=== PATIENT | female | born 1945 | race Asian ===

== ENCOUNTER 2016-10-08 18:17 | Inpatient (IN) | payer MEDICARE ==
[~2016-10-08] VITALS: Ht 180.3 cm; Wt 73.3 kg
--- NOTE | ~2016-10-08 | HEMODYNAMI ---
PATIENT:MOON HOWARD MEDICAL RECORD: [id number] : 41 LOCATION[id number] ADMISSION DATE: 10/08/16 Generatedon:10/09/201613:33 Patient name: MOON HOWARD Patient #: [id number] SSN: : 1945 Date of study: 10/09/2016 Page: Of Hemodynamic Procedure Report Patient Data Patient Demographics Procedure consent was obtained First Name: MOON Gender: Female Last Name: ANITA : 1945 Middle Initial: M Age: 71 year(s) Patient #: [id number] Race: Additional ID: [id number] Contact details Address: [address] [place] [address] ROAD State: [place] City: [place] Zip code: [address] Past Medical History Allergies Allergen Reaction Date Comments Reported Other allergy 10/09/2016 Cipro, Acetaminophen, Propoxyphyne napsylate Penicillins 10/09/2016 Admission Admission Data Admission Date: 10/08/2016 Admission Time: 20:43 Admit Source: Emergency Insurance Payor: Private department health insurance Room #: D.2114 Height (in.): 60 BSA: 1.58 (m2) Height (cm.): 152.4 BMI: 26.26 (kg/m2) Weight (lbs.): 134.48 Weight (kg.): 61 Lab Results Lab Result Date: 10/09/2016 Lab Result Time: 0:00 Biochemistry Name Units Result Min Max CK-MB ng/ml 28.7 --(----)-* 0 3.6 Creatinine mg/dl 0.9 --(-*--)-- 0.6 1.3 Troponin l ng/ml 4.93 --(----)-* 0 0.06 CBC Name Units Result Min Max Hemoglobin g/dl 12.7 -*(----)-- 13.5 17.5 Procedure Procedure Types Cath Procedure Diagnostic Procedure LHC LHC w/Coronaries PCI Procedure Coronary Stent Initial Procedure Description Procedure Date Procedure Date: 10/09/2016 Procedure Start Time: 12:57 Procedure End Time: 13:32 Procedure Staff Name Function Sandip Dimascarina RT Scrub Jaylen Teixeira MD Performing Physician Britany Rhoades RN Nurse Tad Champion RT Technical Buyer Sri Green RT Monitor Additional PCI Information PCI indication: PCI for high risk Non-STEMI or unstable angina Procedure Data Cath Procedure Fluoroscopy Diagnostic fluoroscopy Total fluoroscopy Time: 8.6 time: 8.6 min min Diagnostic fluoroscopy Total fluoroscopy dose: 965 dose: 965 mGy mGy Contrast Material Contrast Material Type Amount (ml) Isovue 300 132 Entry Location Entry Primary Successful Side Size Upsize Upsize Entry Closure Succes sful Closure Location (Fr) 1 (Fr) 2 (Fr) Remarks Device Remarks Femoral Right 5 Fr 6 Fr Exoseal artery Short Estimated blood loss: 10 ml Diagnostic catheters Device Type Used For End Catheter Placement Cordis 5Fr JL 4.0 Left Coronary Catheter (MP) Angiography Cordis 5Fr 3DRC Catheter Right Coronary (MP) Angiography Cordis 5Fr Pigtail LV Angiography Catheter (MP) Procedure Complications No complications Procedure Medications Medication Administration Route Dosage Oxygen NC 2 l/min Heparin Flush Bag added to field 2 bags (1000units/500ml NS) Lidocaine 2% added to field 20 Versed I.V. 1 mg Fentanyl I.V. 50 mcg Fentanyl I.V. 25 mcg Heparin Bolus I.V. 4000 units Integrilin (Bolus I.V. 5.6 ml 2mg/ml) Plavix P.O. 600 mg Hemodynamics Rest BSA: 1.58 (m2) HGB: 12.7 (g/dl) O2 Consumption: Estimated: 146.09 (ml/min) O2 Co nsumption indexed: Estimated:92.46 (ml/min/m) Heart Rate: 73 (bpm) Pressure Samples Time Site Value (mmHg) Purpose Heart Use Rate(bpm) 13:04 LV 91/6,21 EDP 67 Gradients Valve Time Site Site Mean SEP/DFP Peak To Heart Use 1 2 (mmHg) (sec/min) Peak Rate (mmHg) (bpm) Aortic 13:04 LV AO 67 Snapshots Pre Cath Intra NCS Post Cath Vital Signs Time Heart Resp SPO2 NIBP (mmHg) Rhythm Pain Sedation Rate (ipm) (%) Status Level (bpm) 12:41:06 68 20 100 161/88(134) NSR 0 (11) 10(A) , No pain 12:45:22 67 19 99 147/81(118) NSR 0 (11) 10(A) , No pain 12:49:32 68 20 99 127/80(107) NSR 0 (11) 10(A) , No pain 12:53:40 66 16 98 108/66(81) NSR 0 (11) 10(A) , No pain 12:57:44 63 15 96 101/57(77) NSR 0 (11) 9(A) , No pain 13:01:46 66 16 96 94/58(72) NSR 0 (11) 9(A) , No pain 13:05:43 66 15 95 99/64(74) NSR 0 (11) 9(A) , No pain 13:09:45 64 16 96 92/57(71) NSR 0 (11) 9(A) , No pain 13:13:44 63 16 96 99/54(79) NSR 0 (11) 9(A) , No pain 13:17:46 64 16 96 100/59(78) NSR 0 (11) 9(A) , No pain 13:21:46 63 16 96 101/63(79) NSR 0 (11) 10(A) , No pain 13:26:45 67 21 97 Measuring NSR 0 (11) 10(A) , No pain 13:27:26 72 20 96 Disturbed NSR 0 (11) 10(A) , No pain 13:30:01 63 18 97 119/72(94) NSR 0 (11) 10(A) , No pain Medications Time Medication Route Dose Verified Delivered Reason Notes Effectiveness by by 12:43:57 Oxygen NC 2 Jaylen Britany Per physician l/min St. Maycol Rhoades RN, MD 12:44:04 Heparin Flush added 2 Jaylen Jaylen used for [facility] (1000[facility]/500ml field MD VELÁZQUEZ NS) 12:44:13 Lidocaine 2% added 20ml Jaylen Jaylen used for to vial Ambridge Puneet procedure field MD VELÁZQUEZ 12:52:10 Versed I.V. 1 mg Jaylen Britany for sedation St. Maycol Rhoades RN, MD 12:52:21 Fentanyl I.V. 50 Jaylen Garg for sedation mcg St. Maycol Rhoades RN, MD 12:54:42 Fentanyl I.V. 25 Jaylen Garg for sedation mcg St. Maycol Rhoades RN, MD 13:06:03 Heparin Bolus I.V. 4000 Jaylen Garg for dose units St. Maycol Rhoades RN anticoagulation verified MD with dr mckeon 13:08:54 Integrilin I.V. 5.6 Jaylen Garg for (Bolus 2mg/ml) ml St. Maycol Rhoades RN antiplatelet MD therapy 13:29:12 Plavix P.O. 600 Jaylen Garg for mg St. Maycol Rhoades RN antiplatelet MD therapy Procedure Log Time Note 12:15:19 Tad Champion RT(R) sent for patient. Start room use. 12:27:12 ACC Patient presents with Non-STEMI CCS Anginal Class 3--Marked limitation of physical activity, angina occurs with ordinary activity.. 12:27:15 Diagnostic Cath status Elective 12:27:59 Time tracking: Regular hours 12:28:05 Plan of Care:Hemodynamics will remain stable., Cardiac rhythm will remain stable., Comfort level will be maintained., Respiratory function will remain adequate., Patient/ family verbilizes understanding of procedure., Procedure tolerated without complication., Recovers from procedure without complications.. 12:35:35 Patient received from PCU to CCL 1 Alert and oriented. Tansferred to table in Supine position. 12:35:36 Warm blankets applied, and pia hugger turned on for patient comfort. 12:35:37 Correct patient and procedure confirmed by team. 12:35:38 Signed procedure consent form obtained from patient. 12:35:39 ECG and BP/O2 sat monitors applied to patient. 12:35:40 Full Disclosure recording started 12:40:01 Vital chart was started 12:40:02 Baseline sample Acquired. 12:40:07 Rhythm: sinus rhythm 12:43:16 Patient Height : 152.4 cm 12:43:20 Patient Weight : 61 kg 12:43:31 Admit Source: Emergency department 12:43:34 Insurance Payor : Private health insurance 12:43:57 Oxygen 2 l/min NC was given by Britany Rhoades RN; Per physician; 12:44:04 Heparin Flush Bag (1000units/500ml NS) 2 bags added to field was given by Jaylen Teixeira MD; used for procedure; 12:44:13 Lidocaine 2% 20ml vial added to field was given by Jaylen Teixeira MD; used for procedure; 12:45:50 Lab Result : Troponin l 4.93 ng/ml 12:45:50 Lab Result : Hemoglobin 12.7 g/dl 12:45:50 Lab Result : Creatinine 0.9 mg/dl 12:45:50 Lab Result : CK-MB 28.7 ng/ml 12:46:56 Patient allergic to Other allergyCipro, Acetaminophen, Propoxyphyne napsylate 12:47:00 Patient allergic to Penicillins 12:47:24 H&P Date Dictated: 10/09/2016 Within 30 days and on chart.. 12:47:25 Pre-op teaching completed and patient verbalized understanding. 12:47:25 Pre-procedure instructions explained to patient. 12:47:27 Family in waiting room. 12:47:29 Patient NPO since Midnight. 12:47:31 Is the patient allergic to Iodine/contrast media? No. 12:47:33 Is patient on blood thinner?No 12:47:36 ACC The patient was administered the following blood thiners within the last 24 hours: None 12:48:00 Patient diabetic? No. 12:48:05 Previous problem with sedation/anesthesia? No ? 12:48:06 Snore? No 12:48:08 Sleep apnea? No 12:48:09 Deviated septum? No 12:48:10 Opens mouth fully? Yes 12:48:11 Sticks out tongue? Yes 12:48:13 Airway obstruction? No ? 12:48:16 Dentures? No ? 12:48:18 Pre procedure: right dorsailis pedis pulse 2+ Normal; easily identifiable; not easily obliterated 12:48:21 Patient pain scale 0/10 ?. 12:48:29 IV patent on arrival in right wrist with 0.9% NaCl at [facility]. 12:48:36 Lab results completed and on chart. 12:48:39 Right groin area was prepped with chlora-prep and draped in sterile fashion 12:48:40 Alarms reviewed by R. N. 12:48:41 Sharps counted by scrub and verified by R.N. 12:48:46 Use device set Femoral Dx 12:48:47 Bag Decanter opened to sterile field. 12:48:47 Acist Syringe opened to sterile field. 12:48:48 Terumo 5Fr Bolton Sheath opened to sterile field. 12:48:48 Cardinal Cath Pack opened to sterile field. 12:48:49 St Bernard 260cm J .035 wire opened to sterile field. 12:48:50 Acist Manifold opened to sterile field. 12:48:50 Acist Hand Control opened to sterile field. 12:48:51 Cordis Infinity 5Fr Multipack catheter opened to sterile field. 12:48:52 Tegaderm 4 x 4 opened to sterile field. 12:50:40 Physician paged 12:51:29 Zero performed for pressure channel P1 12:52:08 Final Timeout: patient, procedure, and site verified with staff and physician. All members of the team are in agreement. 12:52:10 Versed 1 mg I.V. was given by Britany Rhoades RN; for sedation; 12:52:10 Right groin site verified by team. 12:52:13 Physical assessment completed. ASA score P 2 - A patient with mild systemic disease as per Jaylen Teixeira MD. 12:52:15 Sedation plan: IV Moderate Sedation Versed, Fentanyl 12:52:21 Fentanyl 50 mcg I.V. was given by Britany Rhoades RN; for sedation; 12:54:42 Fentanyl 25 mcg I.V. was given by Britany Rhoades RN; for sedation; 12:56:59 Procedure started. 12:57:10 Local anesthetic to right femoral artery with Lidocaine 2% by Jaylen Teixeira MD.INITIAL ACCESS ONLY 12:57:44 A 5 Fr sheath was inserted into the Right Femoral artery 12:59:08 Terumo 5Fr Bolton Sheath opened to sterile field. 12:59:37 First sheath damaged. 12:59:47 A Cordis 5Fr JL 4.0 Catheter (MP) was advanced over the wire and used for Left Coronary Angiography. 13:01:06 Catheter removed. 13:01:14 A Cordis 5Fr 3DRC Catheter (MP) was advanced over the wire and used for Right Coronary Angiography. 13:01:27 Terumo 6Fr Bolton Sheath opened to sterile field. 13:01:27 Haque Whisper J 300cm 0.014 guide wire opened to sterile field. 13:01:28 [employer] BasixCompak Inflation Kit opened to sterile field. 13:02:59 Catheter removed. 13:03:04 A Cordis 5Fr Pigtail Catheter (MP) was advanced over the wire and used for LV Angiography. 13:03:17 Medtronic Launcher 6Fr HS I guide catheter opened to sterile field. 13:04:48 LV gram done using DIANE 13:04:52 EF : 50 % 13:04:53 LV hemodynamics recorded. 13:04:56 Injector settings: Ml/sec: 10, Volume: 20, 13:04:57 Catheter removed. 13:05:02 Sheath upsized to a 6 Fr Short. 13:05:11 Procedure type changed to Cath procedure, Diagnostic procedure, LHC, LHC w/Coronaries, PCI procedure, Coronary Stent Initial 13:05:19 PCI Indication : PCI for high risk Non-STEMI or unstable angina 13:05:33 ACC PCI Site: mRCA has 80% stenosis. 13:05:35 ACC Pre-intervention ALEXANDRA Flow is 3. 13:05:50 6 Fr HS I guide catheter was inserted over the wire 13:06:03 Heparin Bolus 4000 units I.V. was given by Britany Rhoades RN; for anticoagulation; dose verified with dr mckeon 13:08:54 Integrilin (Bolus 2mg/ml) 5.6 ml I.V. was given by Britany Rhoades RN; for antiplatelet therapy; 13:09:10 Whisper wire advanced. 13:11:11 Inflation number: 1 A [place] Sci Ceiba 2.5 X 15 balloon was prepped and advanced across the Dist RCA, then inflated to 8 TAHIR for 0:31 (min:sec). 13:12:15 Inflation number: 1 The [place] Sci Ceiba 2.5 X 15 balloon was reinflated across the Mid RCA, to 13 TAHIR for 0:24 (min:sec). 13:13:10 Balloon removed over the wire. 13:16:00 Inflation Number: 2 A Medtronic Integrity 3.5 X 15 stent was prepped and advanced across the Dist RCA. The stent was deployed at 12 TAHIR for 0:34 (min:sec). 13:16:40 Stent catheter was removed intact over wire. 13:19:24 Inflation Number: 2 A Medtronic Integrity 3.5 X 15 stent was prepped and advanced across the Mid RCA. The stent was deployed at 12 TAHIR for 0:33 (min:sec). 13::53 Stent catheter was removed intact over wire. 13:23:08 Inflation Number: 1 A Medtronic Integrity 3.5 X 15 stent was prepped and advanced across the Prox RCA. The stent was deployed at 14 TAHIR for 0:48 (min:sec). 13:23:14 Stent catheter was removed intact over wire. 13:23:36 Guide catheter removed. 13:23:36 Wire removed. 13:23:48 ACC Post-intervention ALEXANDRA Flow is 3. 13:24:10 Procedure ended.(Physican Out) 13:24:32 Cordis 6Fr Exoseal opened to sterile field. 13:25:09 Sheath removed intact; hemostasis achieved with Exoseal to the Right Femoral artery. 13:25:17 Fluoroscopy time 08.60 minutes. 13:25:21 Fluoroscopy dose: 965 mGy 13:25:21 Flurop Dose total: 965 13:25:27 Contrast amount:Isovue 300 132ml. 13:25:29 Sharps counted by scrub and verified by R.N. 13:25:31 Insertion/operative site no bleeding no hematoma. 13:25:36 Post-op/insertion site Right Femoral artery dressed using a 4 x 4 and Tegaderm. 13:25:39 Post right femoral artery:stable, clean and dry 13:25:44 Post Procedure Pulses reassessed and unchanged 13:25:50 Post-procedure physical assessment completed. ASA score P 2 - A patient with mild systemic disease as per Jaylen Teixeira MD. 13:25:53 Post procedure rhythm: unchanged. 13:25:55 Estimated blood loss: 10 ml 13:25:57 Post procedure instruction explained to patient.Patient verbalizes understanding. 13:25:59 Patient needs reinforcement of post procedure teaching. 13:26:05 Procedure Complication : No complications 13:26:07 See physician's report for complete and final results. 13:27:32 Procedure and supply charges have been captured, reviewed, submitted and are correct. 13:29:12 Plavix 600 mg P.O. was given by Britany Rhoades RN; for antiplatelet therapy; 13:29:56 Report given to PCU. 13:31:54 Vital chart was stopped 13:31:57 Patient transfered to PCU with Bed. 13:31:59 Full Disclosure recording stopped 13:31:59 Procedure ended. 13:32:10 End room use (Document Last) Intervention Summary Intervention Notes Time ActionType Lesion and Equipment Action# Pressure Duration Attributes Used 13:11:11 Inflate Dist RCA [place] 1 8 00:31 balloon Sci Ceiba 2.5 X 15 balloon 13:12:15 Reinflate Mid RCA [place] 1 13 00:24 balloon Sci Ceiba 2.5 X 15 balloon 13:16:00 Place stent Dist RCA Medtronic 2 12 00:34 Integrity 3.5 X 15 stent 13:19:24 Place stent Mid RCA Medtronic 2 12 00:33 Integrity 3.5 X 15 stent 13:23:08 Place stent Prox RCA Medtronic 1 14 00:48 Integrity 3.5 X 15 stent Device Usage Item Name Manufacture Quantity Catalog Number Hospital Part Current Mini mal Lot# / Charge Number Stock Stock Serial# Code Acist Acist 1 52899 388843 452306 723269 20 Syringe Medical Systems Inc Bag Microtek 1 2002S [id number] 42239 528880 5 DecMetaplace [employer] Cardinal Cardinal [address] 217972 14884 986046 5 Cath Pack Health Terumo 5Fr Terumo 2 [id number] 336592 141609 474240 [address] Bernard 1 384002 452150 434772 225609 30 260cm J .035 wire Acist Hand Acist 1 41044 093848 758451 499523 5 Control Medical Systems Inc Acist Acist 1 13751 244038 196956 536378 5 Manifold Medical Systems Inc Cordis Cardinal 1 [id number] 914443 44243 892083 30 Infinity Health 5Fr Multipack catheter Tegaderm 4 3M 1 1626W 248355 689773 460508 5 x 4 Cordis 5Fr Cardinal 1 002280 5 JL 4.0 Health Catheter (MP) Cordis 5Fr Cardinal 1 421138 5 3DRC Health Catheter (MP) Haque Haque 1 [id number] 549777 928482 056204 5 Whisper J Vascular 300cm 0.014 guide wire Terumo 6Fr Terumo 1 [id number] 613269 528345 943156 40 Bolton Sheath Merit Merit 1 [id number] 719263 526235 267109 15 [facility] Medical Inflation Kit Cordis 5Fr Cardinal 1 764422 5 Pigtail Health Catheter (MP) Medtronic Medtronic 1 [id number] 199049 46877 087734 1 Launcher 6Fr HS I guide catheter [place] Sci [place] 1 [id number] 601625 395541 719867 1 [id number] Hire Jungle 2.5 X 15 balloon Medtronic Medtronic 3 [id number] 587853 337482 225218 4 [id number] Premier Health [id number] 3.5 X 15 [id number] stent Cordis 6Fr Cardinal 1 EX600 244964 649037 478397 10 [facility] MedyMatch Signature Audit [place] Stage Time Signature Unsigned Intra-Procedure 10/09/2016 Sri 1:33:45 PM Counts RT(R) Signatures Monitor : Sri Signature : Counts RT Date : Time : [place] [id number] [place] [address]
[~2016-10-08 18:17] MED LIST: ADVIL PM CAPLET1 TAB PO; CALCIUM 600 +1 EAC3 PO; NEXIUM40 MG PO; NORVASC10 MG PO; PRINIVIL10 MG PO; TENORMIN25 MG PO; ULTRAM50 MG PO; VITAMIN D31000 UNI2 PO; XANAX0.5 MG PO
[2016-10-08 18:51] LABS: BASOPHILS 0.3 % (0.0-2.0); EOSINOPHILS 0.4 % (0-7); HEMATOCRIT 41.4 % (36.0-48.0); HEMOGLOBIN 13.7 g/dL (12-16); IMMATURE GRANULOCYTES 0.4 % (0-5); LYMPHOCYTES 21.8 % (15-50); MCH 31.7 pg (26.0-34.0); MCHC 33.1 g/dL (31.0-37.0); MCV 95.8 fL (80.0-100.0); MEAN PLATELET VOLUME 9.2 fL (7.4-10.4); MONOCYTES 6.9 % (2-11); NEUTROPHILS 70.2 % (40-80); PLATELET COUNT 243 10x3/uL (130-400); RBC 4.32 10x6/uL (4.00-5.40); RDW 12.7 % (11.5-14.5)
[2016-10-08 19:12] LABS: ALBUMIN 4.3 g/dL (3.4-5.0); ALKALINE PHOSPHATASE 56 U/L (46-116); ALT (SGPT) 40 U/L (10-68); BILIRUBIN - TOTAL 0.45 mg/dL (0.2-1.3); CALC OSMOLALITY 281 mosm/kg (275-300); CALCIUM 10.3 mg/dL (8.5-10.1); CARBON DIOXIDE 27.8 mmol/L (21.0-32.0); CHLORIDE - SERUM 103 mmol/L (98-107); CREATININE - SERUM 0.8 mg/dL (0.6-1.3); GLUCOSE 102 mg/dL (74-106); PROTEIN - SERUM 8.1 g/dL (6.4-8.2); SODIUM 141 mmol/L (136-145); UREA NITROGEN 16 mg/dL (7-18); eGFR NON AFRICAN AMERICAN 74 mL/min (90-120)
[2016-10-08 19:29] LABS: CHOL - HDL RATIO 4.4 ratio (2.3-4.1); CHOLESTEROL, TOTAL 343 mg/dL (0-200); CKMB 4.9 U/L (0.0-3.6); CREATINE KINASE 132 UL (21-215); HDL CHOLESTEROL 78 mg/dL (32-96); LDL CHOLESTEROL 189 mg/dL (0-100); LDL-HDL RATIO 2.4 ratio (1.5-3.5); TRIGLYCERIDE 383 mg/dL (30-200)
[2016-10-08 19:38] LABS: TROPONIN-I 0.367 ng/mL (0.000-0.060)
[2016-10-08 21:56] LABS: TROPONIN-I 0.724 ng/mL (0.000-0.060)
[2016-10-08 22:42] VITALS: BP 145/72
[2016-10-09 02:54] VITALS: BMI 15.3
[2016-10-09 03:29] LABS: CREATINE KINASE 293 UL (21-215)
--- NOTE | 2016-10-09 03:32 | NUR ---
PT TROPI ELEVATED AND RESULTS 3.550. PT IS RESTING WELL WITHOUT C/O OR DISTRESS NOTED. NO CHEST PAIN REPORTED. SPOKE WITH PT'S PRIMARY NURSE AND NOTIFIED OF ELEVATED TROPI. NO FURTHER INTERVENTION REQUIRED @ THIS TIME.
[2016-10-09 05:35] VITALS: BP 142/82
[2016-10-09 07:52] VITALS: BP 127/73
--- NOTE | 2016-10-09 09:44 | NUR ---
TELEMETRY SR. CONSENTS SIGNED FOR [facility]. WILL CONT. PLAN OF CARE.
[2016-10-09 10:22] LABS: CALC OSMOLALITY 282 mosm/kg (275-300); CALCIUM 9.1 mg/dL (8.5-10.1); CHLORIDE - SERUM 104 mmol/L (98-107); CKMB 28.7 U/L (0.0-3.6); CREATINE KINASE 333 UL (21-215); CREATININE - SERUM 0.9 mg/dL (0.6-1.3); GLUCOSE 140 mg/dL (74-106); SODIUM 141 mmol/L (136-145); UREA NITROGEN 12 mg/dL (7-18); eGFR NON AFRICAN AMERICAN 65 mL/min (90-120)
[2016-10-09 10:23] LABS: BASOPHILS 0.2 % (0.0-2.0); EOSINOPHILS 1.2 % (0-7); HEMATOCRIT 38.9 % (36.0-48.0); HEMOGLOBIN 12.7 g/dL (12-16); IMMATURE GRANULOCYTES 0.4 % (0-5); LYMPHOCYTES 23.2 % (15-50); MCH 31.2 pg (26.0-34.0); MCHC 32.6 g/dL (31.0-37.0); MCV 95.6 fL (80.0-100.0); MEAN PLATELET VOLUME 9.1 fL (7.4-10.4); MONOCYTES 10.5 % (2-11); NEUTROPHILS 64.5 % (40-80); PLATELET COUNT 240 10x3/uL (130-400); RBC 4.07 10x6/uL (4.00-5.40); RDW 12.8 % (11.5-14.5); WBC 8.6 10x3/uL (4.8-10.8)
[2016-10-09 10:37] LABS: POTASSIUM - SERUM 3.1 mmol/L (3.5-5.1)
[2016-10-09 12:00] VITALS: BP 112/65
[2016-10-09 12:21] VITALS: Ht 180.3 cm; Wt 73.3 kg
--- NOTE | 2016-10-09 12:29 | NUR ---
PRE-OPS GIVEN. TO PRINT CUTTER BY BED.
--- NOTE | 2016-10-09 13:47 | NUR ---
BACK FROM FIELD IRONWORKER. VS WNL. RIGHT GROIN STABLE WITHOUT BLEEDING OR HEMATOMA NOTED. WILL MONITOR.
--- NOTE | 2016-10-09 14:42 | NUR ---
CATHETER PLACED TEMPORARY FOR URINARY RETENTION. WILL MONITOR.
[2016-10-09 15:44] VITALS: BP 89/51
--- NOTE | 2016-10-09 17:05 | NUR ---
BED REST UP. GROIN STABLE.
[2016-10-09 20:33] VITALS: BP 112/68
[2016-10-10 00:32] VITALS: BP 126/65
[2016-10-10 04:42] VITALS: BP 113/67
--- NOTE | 2016-10-10 06:06 | NUR ---
PT ASSESSMENT COMPLETED AND PT LAYING IN BED NO DISTRESS OBSERVED FROM PT AT THIS TIME DRESSING TO RIGHT GROIN INPLACE AND C/D/I NO HEMATOMA OBSERVED OR NOTED AT THIS TIME PT DENIES NEEDS WANTS OR PAIN AT THIS TIME CALL LIGHT IN REACH SRX2 BED LOW AND LOCKED WILL MONITOR
[2016-10-10 08:00] VITALS: BP 125/73
--- NOTE | 2016-10-10 09:02 | NUR ---
TELEMETRY ST. UP AMBULATING HALLWAY. GAIT STEADY.
--- NOTE | 2016-10-10 09:47 | NUR ---
ULTRAM GIVEN FOR BACK PAIN. WILL MONITR.
[2016-10-10 12:00] VITALS: BP 123/74
[2016-10-10 16:00] VITALS: BP 94/47
[2016-10-10 20:26] VITALS: BP 122/58
--- NOTE | 2016-10-10 23:12 | NUR ---
DR. GERARD PAGED FOR NEW ONSET OF AFIB, AWAITING CALL BACK.
--- NOTE | 2016-10-11 00:27 | NUR ---
22 GAUGE TO RIGHT FOREARM X 1 STICK. BETAPACE 120MG PO GIVEN ALONG WITH CARDIZEM 20MG IVP. 132 UCAF. WILL CONTINUE TO MONITOR.
[2016-10-11 00:38] VITALS: BP 132/72
--- NOTE | 2016-10-11 03:53 | NUR ---
OLEOMARGARINE MAKER AT BEDSIDE TO OBTAIN VITALS, CALL LIGHT IN REACH. WILL CONTINUE WITH PLAN OF CARE.
[2016-10-11 04:40] VITALS: BP 77/49
--- NOTE | 2016-10-11 07:30 | NUR ---
RECEIVED PT IN BED EYES CLOSED RESP UNLABORED NAD NOTED
[2016-10-11 08:14] VITALS: BP 97/57
[2016-10-11] MEDS ORDERED: PREDNISONE5 MG PO (09:03)
[2016-10-11] MEDS ORDERED: CARAFATE1 G/10 ML PO (09:03)
[2016-10-11] MEDS ORDERED: CRESTOR10 MG PO (09:04)
[2016-10-11] MEDS ORDERED: PROTONIX40 MG PO (09:04)
[2016-10-11] MEDS ORDERED: BETAPACE 120 M120 MG PO (09:05)
[2016-10-11] MEDS ORDERED: PLAVIX75 MG PO (09:42)
[2016-10-11] MEDS ORDERED: LOW DOSE ASPIRI81 M1 PO (09:48)
--- NOTE | 2016-10-11 10:07 | NUR ---
Patient Name: MOON HOWARD Admission Status: ER Accout number: [id number] Admission Date: 10-09-2016 : 1945 Admission Diagnosis:CHEST PAIN, UNSPECIFIED Attending: RYDER Current LOS: 2 Anticipated DC Date: 10-11-2016 Planned Disposition: Home Primary Insurance: [employer] MEDICARE PPO or HMO Discharge Planning Comments: * Is the patient Alert and Oriented? Yes 0 * How many steps to enter\exit or inside your home? 4 0 * PCP DR. CLANCY 0 * Pharmacy [facility] [address] [facility] MAIL ORDER 0 * Preadmission Environment Home with Family 0 * ADLs Independent 0 * Equipment Cane 0 * Other Equipment NO MEDICAL EQUIPMENT PROVIDER PREFERENCE 0 * List name and contact numbers for known caregivers / representatives who currently or will assist patient after discharge: CRISTAL HOWARD, SPOUSE, 0 * Community resources currently utilized None 0 * Please name any agencies selected above. NONE 0 * Additional services required to return to the preadmission environment? No 0 * Can the patient safely return to the preadmission environment? Yes 0 * Has this patient been hospitalized within the prior 30 days at any hospital? No 0 CM MET WITH PT IN ROOM TO DISCUSS DISCHARGE PLANNING AND NEEDS. PT REPORTS LIVING AT HOME INDEPENDENTLY WITH SPOUSE. PT HAS A CANE WITH NO MEDICAL EQUIPMENT PROVIDER AND NO OUTSIDE SERVICES ASSISTING IN THE HOME. CM DISCUSSED AVAILABILITY OF HOME HEALTH, REHAB SERVICES AND MEDICAL EQUIPMENT. PT WILL SPEAK TO DR. CLANCY ABOUT A WALKER WHEN SHE VISITS HIM NEXT WEEK, SHE WAS AT [facility] OVER ONE MONTH AGO AND THEY SUGGESTED SHE MAY NEED A WALKER. PT FEELS HER CANE IS SUFFICIENT FOR NOW AND IS ALSO LOOKING AT A FOUR PRONGED CANE AT [facility] BECAUSE INSURANCE WILL NOT PAY FOR A CANE. CM ASKED ABOUT PT'S FUNCTIONING HERE IN THE HOSPITAL, PT REPORTS BEING UP INDEPENDENTLY AND WALKING WITHOUT ASSISTANCE OR DEVICES. PT DENIES DISCHARGE NEEDS, REPORTS HER SON WILL PICK HER UP FOR DISCHARGE HOME. IMPORTANT MESSAGE FROM MEDICARE PROVIDED AND EXPLAINED. Criminal Investigator: Adolfo Means
--- NOTE | 2016-10-11 11:15 | NUR ---
REVIEWED DISCHARGE INSTRUCTIONS WITH PT STATES UNDERSTANDING COPY GIVEN TO PT DCD SALINE LOCK TO RFA WITH IV CATH INTACT NO REDNESS OR EDEMA NOTED AT SITE
--- NOTE | 2016-10-11 11:20 | NUR ---
PT DISCHARGED HOME LEFT VIA W/C IN STABLE CONDITION WITH ALL PERSONAL BELONGINGS
--- NOTE | 2016-10-11 14:44 | OP ---
PATIENT NAME: MOON HOWARD MEDICAL RECORD: [id number] :41 LOCATION:D.M2 D.2114 ADMISSION DATE:10/09/16 SURGEON: ROXANNE HASSAN MD DATE OF OPERATION: 10/09/2016 PROCEDURE: Left heart catheterization, selective coronary angiography, right femoral artery approach. CATHETERS: A 5-Iraqi sheath, 5/4 left and right Case, 5/4 pig. The procedure was well tolerated and the patient returned to richard. Sheath removed. ExoSeal device placed. FINDINGS: Left ventriculography in 30-degree DIANE view shows anterior apical hypokinesis. Overall, LV function lower limits of normal at 50%. CORONARY ANATOMY: Left main: Left main is free of disease. LAD: LAD has an ____ plaque in its proximal portion. CIRCUMFLEX: Circumflex is totally occluded. RIGHT CORONARY ARTERY: Dominant artery, a large 3.5 vessel, fills the circumflex via collaterals and has 3 sequential stenoses in the true right itself. Also, distal PDA ____ infarct related artery. PROCEDURE IN DETAIL: A 5-Iraqi sheath was changed for a 6-Iraqi sheath. A hockey stick guide catheter provided excellent guide catheter support followed after a 300 cm [place] XT wire was placed to the totally occluded right down across the PDA as well. Initially, balloon placed was taken to the PDA and this 2.5 x 15 mm ____ balloon was inflated up to 10 atmospheres for 30 seconds shows excellent resolution of the PDA subtotal stenosis, no significant residual. Next, 3 sequential 80% stenosis on the right where each addressed with a 3.5 Integrity 3.5x15 mm Integrity stent distally, mid portion 3.5 Integrity stent up to 12 atmospheric ____ seconds. Finally, proximally, a 3.5 x 15-mm Integrity nondrug eluting stent up to 14 atmospheres for 45 seconds to each inflation. Final injection shows excellent resolution of a 90% plus stenosis of the PDA with no significant residual. Three sequential 80% stenosis in the RCA to no significant residual. ALEXANDRA flow was 3 throughout the procedure. Integrilin was used in the case. Plavix was loaded in the lab. Sheath was closed with ExoSeal device. TRANSINT:[id number] Voice Confirmation ID: [id number] DOCUMENT ID: [id number] ROXANNE HASSAN MD at 1444 CC: [id number] DICTATION DATE: 10/09/16 1330 PREMIUM SERVICE REPRESENTATIVE: 10/09/16 1407 DIS IN 10/11/16 [place] [address] [facility] [place] [address]
== END 2016-10-11 11:20 | disposition home or self-care (01) | DRG 249 ==
LOC: D.ER 18:17 → D.M2 20:43 → OBSVTIME 21:13 → D.M2 10-09 15:55 → D.SDCHOLD 10-10 12:06 → D.M2 10-11 11:20
PROVIDERS: Emergency Medicine; Internal Medicine Cardiovascular Disease; Internal Medicine Interventional Cardiology; ADMIT Family Medicine
PROC: 4A023N7 Measurement of Cardiac Sampling and Pressure, Left Heart, Percutaneous Approach (ICD-10-PCS; 2016-10-09)
PROC: B2111ZZ Fluoroscopy of Multiple Coronary Arteries using Low Osmolar Contrast (ICD-10-PCS; 2016-10-09)
PROC: B2151ZZ Fluoroscopy of Left Heart using Low Osmolar Contrast (ICD-10-PCS; 2016-10-09)
PROC: 02703FZ Dilation of Coronary Artery, One Artery with Three Intraluminal Devices, Percutaneous Approach (ICD-10-PCS; principal; 2016-10-09 11:00)
PROC: 02703ZZ Dilation of Coronary Artery, One Artery, Percutaneous Approach (ICD-10-PCS; 2016-10-09 11:00)
DX: I21.4 Non-ST elevation (NSTEMI) myocardial infarction (principal); I10 Essential (primary) hypertension; E78.5 Hyperlipidemia, unspecified; M81.0 Age-related osteoporosis without current pathological fracture; M19.90 Unspecified osteoarthritis, unspecified site; M06.9 Rheumatoid arthritis, unspecified; K21.9 Gastro-esophageal reflux disease without esophagitis; E87.6 Hypokalemia; M75.101 Unspecified rotator cuff tear or rupture of right shoulder, not specified as traumatic

== ENCOUNTER 2016-10-15 11:06 | Outpatient (CLI) | payer MEDICARE ==
[~2016-10-15] VITALS: Ht 152.4 cm; Wt 58.2 kg
--- NOTE | ~2016-10-15 | HEMODYNAMI ---
PATIENT:MOON HOWARD MEDICAL RECORD: [id number] : 41 LOCATION:[place] ADMISSION DATE: 10/15/16 Generatedon:10/15/201613:53 Patient name: MOON HOWARD Patient #: [id number] : 1945 Date of study: 10/15/2016 Page: Of Hemodynamic Procedure Report Patient Data Patient Demographics Procedure consent was obtained First Name: MOON Gender: Female Last Name: ANITA : 1945 Middle Initial: M Age: 71 year(s) Patient #: [id number] Race: SSN: [id number] Additional ID: [id number] Contact details Address: [address] [address] State: [place] City: [place] Zip code: [address] Past Medical History Allergies Allergen Reaction Date Comments Reported Other allergy 10/09/2016 Cipro, Acetaminophen, Propoxyphyne napsylate Penicillins 10/09/2016 Other allergy 10/15/2016 Ciprofloxin,PCN, ASA, Darvocet Admission Admission Data Admission Date: 10/15/2016 Admission Time: 11:06 Arrival Date: 10/15/2016 Arrival Time: 0:00 Admit Source: Other Insurance Payor: Medicare Height (in.): 6 Height (cm.): 15.24 Lab Results Lab Result Date: 10/15/2016 Lab Result Time: 0:00 CBC Name Units Result Min Max Hemoglobin g/dl 11.6 *-(----)-- 13.5 17.5 Procedure Procedure Types Cath Procedure PCI Procedure Coronary Stent Initial Procedure Description Procedure Date Procedure Date: 10/15/2016 Procedure Start Time: 13:33 Procedure End Time: 13:52 Procedure Staff Name Function Dylan Noel RN Continuous Improvement Facilitator Sunny Armenta RN Nurse Linh Trivedi MD Ordering physician Jaylen Teixeira MD Performing Physician Gumaro Centeno RT Scrub Astrid Brown RT Monitor Procedure Data Cath Procedure Fluoroscopy Diagnostic fluoroscopy Total fluoroscopy Time: time: 4:40 min 4:40 min Diagnostic fluoroscopy Total fluoroscopy dose: 454 dose: 454 mGy mGy Contrast Material Contrast Material Type Amount (ml) Isovue 370 0 Isovue 300 52 Entry Location Entry Primary Successful Side Size Upsize Upsize Entry Closure Dimas ccessful Closure Location (Fr) 1 (Fr) 2 (Fr) Remarks Device Remarks Radial Right 6 Fr Mechanical TR band artery Short Compression Estimated blood loss: 10 ml Procedure Complications No complications Procedure Medications Medication Administration Route Dosage Oxygen NC 2 l/min Benadryl I.V. 50 mg Lidocaine 2% added to field 20 Heparin Flush Bag added to field 2 bags (1000units/500ml NS) 0.9% NaCl I.V. 100 ml/hr Versed I.V. 1 mg Fentanyl I.V. 50 mcg Versed I.V. 1 mg Fentanyl I.V. 50 mcg Radial Cocktail I.A. 1 syringe (Verapomil 2mg/Nitro 400mcg/Heparin 1500units) Heparin Bolus I.V. 4000 units Fentanyl I.V. 50 mcg Heparin Bolus I.V. 4000 units Hemodynamics Rest HGB: 11.6 (g/dl) Pre Cath Intra NCS Post Cath Vital Signs Time Heart Resp SPO2 NIBP (mmHg) Rhythm Pain Sedation Rate (ipm) (%) Status Level (bpm) 13:01:28 61 21 99 144/81(122) NSR 0 (11) 10(A) , No pain 13:05:38 61 15 100 141/82(118) NSR 0 (11) 10(A) , No pain 13:09:52 18 17 100 105/65(77) NSR 0 (11) 10(A) , No pain 13:13:56 19 16 100 106/61(80) NSR 0 (11) 10(A) , No pain 13:17:56 41 14 100 110/71(87) NSR 0 (11) 10(A) , No pain 13:21:59 59 17 100 120/68(99) NSR 0 (11) 10(A) , No pain 13:26:05 34 16 100 102/66(80) NSR 0 (11) 9(A) , No pain 13:30:05 51 14 99 120/73(99) NSR 0 (11) 9(A) , No pain 13:33:32 15 16 100 107/70(93) NSR 0 (11) 10(A) , No pain Medications Time Medication Route Dose Verified Delivered Reason Note s Effectiveness by by 13:00:57 Oxygen NC 2 l/min Jaylen Buffie used for [facility] Maycol Armenta RN procedure 13:01:06 Benadryl I.V. 50 mg Jaylen Buffie used for [facility] Maycol Armenta RN procedure 13:01:16 Lidocaine 2% added 20ml Jaylen Jaylen for local to vial [facility] anesthetic field MD VELÁZQUEZ 13:01:23 Heparin Flush added 2 bags Jaylen Zamudioory used for Bag to [facility] procedure (1000units/500ml field MD VELÁZQUEZ NS) 13:01:32 0.9% NaCl I.V. 100 Jaylen Buffie Per physician ml/hr [facility] Maycol Armenta RN, MD 13:22:47 Versed I.V. 1 mg Jaylen Ramsayie for sedation [facility] Maycol Armenta RN, MD 13:22:54 Fentanyl I.V. 50 mcg Jaylen Ramsayie for sedation [facility] Maycol Armenta RN, MD 13:32:49 Versed I.V. 1 mg Jaylen Buffie for sedation St. aMycol Armenta RN, MD 13:32:56 Fentanyl I.V. 50 mcg Jaylen Ramsayie for sedation [facility] Maycol Armenta RN, MD 13:33:28 Radial Cocktail I.A. 1 Jaylen Jaylen for (Verapomil syringe [facility] vasodilation 2mg/Nitro MD VELÁZQUEZ 400mcg/Heparin 1500units) 13:35:16 Heparin Bolus I.V. 4000 Jaylen Buffie for veri fied units [facility] Maycol Armenta RN anticoagulation with dr MD banerjee 13:38:14 Fentanyl I.V. 50 mcg Jaylen Ramsayie for sedation [facility] Maycol Armenta RN, MD 13:48:22 Heparin Bolus I.V. 4000 Jaylen Buffie for veri fied units [facility]. Maycol Armenta RN anticoagulation with dr MD banerjee Procedure Log Time Note 12:45:25 Admit Source: Other 12:45:27 Arrival Date: 10/15/2016 12:00:00 AM 12:45:49 Insurance Payor : Medicare 12:50:21 ACC Patient presents with Unstable Angina CCS Anginal Class 2--Slight limitation of ordinary activity. 12:50:24 Diagnostic Cath status Elective 12:50:27 Dylan Noel RN sent for patient. Start room use. 12:50:28 Time tracking: Regular hours 12:50:34 Plan of Care:Hemodynamics will remain stable., Cardiac rhythm will remain stable., Comfort level will be maintained., Respiratory function will remain adequate., Patient/ family verbilizes understanding of procedure., Procedure tolerated without complication., Recovers from procedure without complications.. 12:50:51 Patient received from Outpatients to CCL 2 Alert and oriented. Tansferred to table in Supine position. 12:50:56 Patient arrived from Outpatients to CCL 2. Patient remains on bed/stretcher for procedure. 12:50:58 Warm blankets applied, and pia hugger turned on for patient comfort. 12:50:59 Correct patient and procedure confirmed by team. 12:51:01 Signed procedure consent form obtained from patient. 12:51:21 H&P Date Dictated: 10/09/2016 Within 30 days and on chart., H&P Addendum completed by physician on day of procedure. (MUST COMPLETE FOR ALL OUTPATIENTS). 12:51:27 Family in waiting room. 12:51:29 Patient NPO since Midnight. 12:52:36 Patient allergic to Other allergyCiprofloxin,PCN, ASA, Darvocet 12:52:40 Is the patient allergic to Iodine/contrast media? No. 12:52:52 Is patient on blood thinner?Yes 12:52:56 ACC The patient was administered the following blood thiners within the last 24 hours: ACCPlavix 13:00:19 Vital chart was started 13:00:44 Patient diabetic? No. 13:00:57 Oxygen 2 l/min NC was given by Sunny Armenta RN; used for procedure; 13:01:02 Snore? Yes 13:01:06 Sleep apnea? No 13:01:06 Benadryl 50 mg I.V. was given by Sunny Armenta RN; used for procedure; 13:01:16 Lidocaine 2% 20ml vial added to field was given by Jaylen Teixeira MD; for local anesthetic; 13:01:21 Deviated septum? No 13:01:23 Opens mouth fully? Yes 13:01:23 Heparin Flush Bag (1000units/500ml NS) 2 bags added to field was given by Jaylen Teixeira MD; used for procedure; 13:01:26 Sticks out tongue? Yes 13:01:32 0.9% NaCl 100 ml/hr I.V. was given by Sunny Armenta RN; Per physician; 13:01:40 Airway obstruction? No ? 13:01:50 Airway obstruction? No none 13:02:02 Dentures? No none 13:03:24 IV patent on arrival in left forearm with 0.9% NaCl at [facility]. 13:04:07 Right Radial & Right Groin area was prepped with chlora-prep and draped in sterile fashion 13:04:10 Alarms reviewed by R. N. 13:04:13 Sharps counted by scrub and verified by R.N. 13:07:20 Physician paged 13:07:45 Use device set Radial PCI 13:07:48 Acist Syringe opened to sterile field. 13:07:49 Acist Hand Control opened to sterile field. 13:07:50 Cardinal Cath Pack opened to sterile field. 13:07:50 Bag Decanter opened to sterile field. 13:07:52 Merit BasixCompak Inflation Kit opened to sterile field. 13:07:53 Terumo 6Fr Slender Glidesheath opened to sterile field. 13:07:56 Acist Manifold opened to sterile field. 13:07:56 St Bernard 260cm Straight .035 wire opened to sterile field. 13:07:59 Tegaderm 4 x 4 opened to sterile field. 13:10:02 Zero performed for pressure channel P1 13:20:10 Zero performed for pressure channel P1 13:21:11 Physician arrived 13:21:12 --------ALL STOP TIME OUT------ 13:21:13 Final Timeout: patient, procedure, and site verified with staff and physician. All members of the team are in agreement. 13:21:21 Right Radial & Left Groin site verified by team. 13:21:42 Physical assessment completed. ASA score P 2 - A patient with mild systemic disease as per Jaylen Teixeira MD. 13:21:47 Sedation plan: IV Moderate Sedation Versed, Fentanyl 13::47 Versed 1 mg I.V. was given by Sunny Armenta RN; for sedation; 13:22:54 Fentanyl 50 mcg I.V. was given by Sunny Armenta RN; for sedation; 13:25:10 Patient Height : 6 cm 13:25:55 Hemodynamic formulas in Rest were re-calculated based on hemoglobin value from 10/15/2016 12:00:00 AM 13:25:55 Lab Result : Hemoglobin 11.6 g/dl 13:31:26 Procedure started. 13:31:26 Full Disclosure recording started 13:32:49 Versed 1 mg I.V. was given by Sunny Armenta RN; for sedation; 13:32:56 Fentanyl 50 mcg I.V. was given by Sunny Armenta RN; for sedation; 13:33:06 Local anesthetic to right radial artery with Lidocaine 2% by Jaylen Teixeira MD.INITIAL ACCESS ONLY 13:33:17 A 6 Fr Short sheath was inserted into the Right Radial artery 13:33:28 Radial Cocktail (Verapomil 2mg/Nitro 400mcg/Heparin 1500units) 1 syringe I.A. was given by Jaylen Teixeira MD; for vasodilation; 13:33:40 Cordis 6FR XBLAD 3.5 guide catheter opened to sterile field. 13:34:13 ACC PCI Site: pLAD has 80% stenosis. 13:34:16 ACC Pre-intervention ALEXANDRA Flow is 3. 13:34:28 6 Fr XBLAD 3.5 guide catheter was inserted over the wire 13:35:16 Heparin Bolus 4000 units I.V. was given by Sunny Armenta RN; for anticoagulation; verified with dr banerjee 13:38:00 Haque Granger 300cm 0.014 guide wire opened to sterile field. 13:38:14 Fentanyl 50 mcg I.V. was given by Sunny Armenta RN; for sedation; 13:38:19 Wire advanced across lesion. 13:40:20 Inflation Number: 1 A Medtronic Integrity 3.5 X 12 stent was prepped and advanced across the Prox LAD. The stent was deployed at 12 TAHIR for 0:17 (min:sec). 13:41:02 Stent catheter was removed intact over wire. 13:45:00 Inflation Number: 1 A Medtronic Integrity 3.5 X 18 stent was prepped and advanced across the Prox LAD1. The stent was deployed at 12 TAHIR for 0:20 (min:sec). 13:45:12 Stent catheter was removed intact over wire. 13:45:52 Balloon removed over the wire. 13:45:52 Wire removed. 13:45:53 Guide catheter removed. 13:47:03 Terumo TR Band Standard opened to sterile field. 13:48:22 Heparin Bolus 4000 units I.V. was given by Sunny Armenta RN; for anticoagulation; verified with dr banerjee 13:49:07 Sheath removed intact; hemostasis achieved with Mechanical Compression to the Right Radial artery. 13:49:10 Procedure ended.(Physican Out) 13:49:27 Fluoroscopy time 4:40 minutes. 13:49:48 Flurop Dose total: 454 13:49:48 Fluoroscopy dose: 454 mGy 13:49:53 Contrast amount:Isovue 370 0ml. 13:49:56 Contrast amount:Isovue 300 52ml. 13:49:58 Sharps counted by scrub and verified by R.N. 13:50:14 TR band inflated with 10cc of air. 13:50:19 Insertion/operative site no bleeding no hematoma. 13:50:26 Post right radial artery:stable 13:51:24 Post-procedure physical assessment completed. ASA score P 2 - A patient with mild systemic disease as per Jaylen Teixeira MD. 13:51:28 Post procedure rhythm: unchanged. 13:51:33 Estimated blood loss: 10 ml 13:51:35 Post procedure instruction explained to patient.Patient verbalizes understanding. 13:51:43 Procedure and supply charges have been captured, reviewed, submitted and are correct. 13:52:32 Procedure Complication : No complications 13:52:40 See physician's report for complete and final results. 13:52:45 Report given to Outpatients. 13:52:48 Patient transfered to Outpatients with Stretcher. 13:52:51 Procedure ended. 13:52:51 Full Disclosure recording stopped 13:53:01 End room use (Document Last) Intervention Summary Intervention Notes Time ActionType Lesion and Equipment Action# Pressure Duration Attributes Used 13:40:20 Place stent Prox LAD Medtronic 1 12 00:17 Integrity 3.5 X 12 stent 13:45:00 Place stent Prox LAD1 Medtronic 1 12 00:20 Integrity 3.5 X 18 stent Device Usage Item Name Manufacture Quantity Catalog Hospital Part Current Minimal Lot# / Number Charge Number Stock Stock Serial# Code Acist Acist 1 37364 007511 240495 [id number] 20 Syringe Medical Systems Inc Acist Hand Acist 1 44861 759328 786130 836831 5 Control Medical Systems Inc Bag Microtek 1 2002S 375525 30767 373074 5 Decanter Medical Inc. Cardinal Cardinal [address] 064560 59973 682283 5 SeeToo [facility] 1 [id number] 757515 666122 624753 15 BasixCompak Medical Inflation Kit Terumo 6Fr Terumo 1 [id number] 928674 552044 317313 [address] [facility] 1 123354 702167 786747 147460 1 260cm Straight .035 wire Acist Acist 1 83886 748292 093309 490892 5 Manifold Medical Systems Inc Tegaderm 4 3M 1 1626W 503371 596247 772156 5 x 4 Cordis 6FR Cardinal 1 [id number] 258806 635453 137958 10 XBLAD 3.5 Health guide catheter Haque Haque 1 [id number] 958550 763108 220371 1 Granger Vascular 300cm 0.014 guide wire Medtronic Medtronic 1 [id number] 256541 833855 857252 6 [id number] Integrity 3.5 X 12 stent Medtronic Medtronic 1 [id number] 791264 466803 9 [id number] Integrity 3.5 X 18 stent Terumo TR Terumo 1 [id number] 495219 006869 969605 40 Band Standard Cordis 6Fr Cardinal 1 EX600 774242 153504 032497 10 [facility] Signature Audit [place] Stage Time Signature Unsigned Intra-Procedure 10/15/2016 Astrid Brown 12:39:00 PM RT(R); Gumaro RT(R); Sri Centeno RT(R) Counts RT(R) 10/15/2016 12:44:55 PM Intra-Procedure 10/15/2016 Astrid Brown 1:53:45 PM RT(R) Signatures Monitor : Astrid Brown Signature : RT Date : Time : [facility] [address] [place] [address]
[~2016-10-15 11:06] MED LIST changes: +BETAPACE 120 M120 MG PO; +CARAFATE1 G/10 ML PO; +CRESTOR10 MG PO; +LOW DOSE ASPIRI81 M1 PO; +PLAVIX75 MG PO; +PREDNISONE5 MG PO; +PROTONIX40 MG PO
[2016-10-15 12:09] VITALS: BP 135/72; Ht 152.4 cm; Wt 58.2 kg
[2016-10-15] MEDS ORDERED: TYLENOL PM1 TAB PO (12:16)
[2016-10-15 13:13] LABS: BASOPHILS 0.2 % (0.0-2.0); EOSINOPHILS 0.9 % (0-7); HEMATOCRIT 34.2 % (36.0-48.0); HEMOGLOBIN 11.6 g/dL (12-16); IMMATURE GRANULOCYTES 0.2 % (0-5); LYMPHOCYTES 16.7 % (15-50); MCH 31.9 pg (26.0-34.0); MCHC 33.9 g/dL (31.0-37.0); MEAN PLATELET VOLUME 9.2 fL (7.4-10.4); MONOCYTES 7.1 % (2-11); NEUTROPHILS 74.9 % (40-80); PLATELET COUNT 247 10x3/uL (130-400); RBC 3.64 10x6/uL (4.00-5.40); RDW 12.6 % (11.5-14.5); WBC 8.5 10x3/uL (4.8-10.8)
[2016-10-15 13:17] LABS: ANION GAP 16.5 mmol/L (8-16); CALCIUM 9.9 mg/dL (8.5-10.1); CARBON DIOXIDE 25.1 mmol/L (21.0-32.0); CREATININE - SERUM 0.8 mg/dL (0.6-1.3); POTASSIUM - SERUM 3.6 mmol/L (3.5-5.1)
--- NOTE | 2016-10-15 14:09 | HP ---
PATIENT: MOON HOWARD MEDICAL RECORD: [id number] ACCOUNT: [id number] LOCATION:[place] : 41 ADMISSION DATE: 10/15/16 HISTORY AND PHYSICAL EXAMINATION HISTORY OF PRESENT ILLNESS: This is a 71-year-old lady with known history of coronary artery disease, status post recent non-ST elevation myocardial infarction. She underwent a diagnostic angiography, at that time found to have critical disease of the ____ requiring 3 stents. Subsequently, at the same period of time, was found to have residual lesion of the LAD was brought back for this. PAST MEDICAL HISTORY: Includes: 1. History of hypertension. 2. Hyperlipidemia. 3. Gastroesophageal reflux disease. ALLERGIES: INCLUDE CIPRO, PENICILLIN AND DARVOCET. MEDICATIONS: Typically include tramadol 50 q.6 hours p.r.n., ____ 40 every day, lisinopril 2.5 every day, atenolol 25 every day, and amlodipine 10 every day. PHYSICAL EXAMINATION: GENERAL: Pleasant female, appears age, in no acute distress. VITAL SIGNS: Blood pressure 102/66, pulse 65 and regular. HEENT: Normocephalic and atraumatic. NECK: No JVD or bruit. HEART: Regular. LUNGS: Clear. ABDOMEN: Soft and nontender. EXTREMITIES: Pulse 2+. No edema. DIAGNOSTIC DATA: ECG without acute change. IMPRESSION: ____. PLAN: For intervention to the LAD in the near future. TRANSINT:[id number] Voice Confirmation ID: [id number] DOCUMENT ID: [id number] ROXANNE HASSAN MD at 1409 CC: [id number] DICTATION DATE: 10/15/16 1326 FIXING MACHINE OPERATOR: 10/15/16 1346 REG [facility] [address] [place] [address]
--- NOTE | 2016-10-15 14:09 | OP ---
PATIENT NAME: MOON HOWARD MEDICAL RECORD: [id number] :41 LOCATION:D.[facility] ADMISSION DATE: SURGEON: ROXANNE HASSAN MD DATE OF OPERATION: 10/15/2016 ____. For catheterization report, please see report dictated last week. PROCEDURE IN DETAIL: After sheath was placed in the right radial artery. An XB LAD guiding catheter provided excellent guide catheter support followed by a 300 cm Argyle XT wire was placed across both ____ occluded areas in the LAD. In the mid portion of the vessel, a 3.5 x 12 mm Integrity nondrug-eluting stent was inflated up to 12 atmospheres. The more proximal 80% stenosis was addressed with 18 mm x 3.5 Integrity nondrug-eluting stent. This was inflated up to 14 atmospheres, both in place for 45 seconds. Final injection shows excellent resolution of 2 sequential 80% stenosis, 1 mid and 1 proximal with no significant residual. ALEXANDRA flow was 3 throughout the procedure. The patient was previously on Plavix, so heparin was used during the case. Sheath was closed with TR band. TRANSINT:[id number] Voice Confirmation ID: [id number] DOCUMENT ID: [id number] ROXANNE HASSAN MD at 1409 CC: [id number] DICTATION DATE: 10/15/16 1354 MOLDED GOODS INSPECTOR TRIMMER: 10/15/[address] [facility] [address] [place] [address]
--- NOTE | 2016-10-15 14:18 | NUR ---
1400 PATIENT COMPLAINS OF CHEST PAIN ON ARRIVAL WITH TR BAND TO R/WRIST PAIN IS RATED AT [address] HASSAN NOTIFIED FOR ORDERS NORCO 10/325 PO X ONE RECIEVED AND CARRIED OUT 1415 ONE NORCO 10/325 GIVEN ORAL WITH SIPS OF WATER. HR 57 NO CHANGE IN RHYTHM BP 1369/69 FAMILY AT SIDE. TR BAND TO R/WRIST CDI NO BLEEDING NO HEMATOMA NOTED
--- NOTE | 2016-10-15 14:30 | NUR ---
1430 PATIENT THRASHING ABOUT IN BED C/O OF CHEST PAIN REQUESTING IV PAIN MEDICATION. NO CHANGE IN VSS 1500 VSS WITH NO CHANGE IN ASSESSMENT TR BAND REMAINS TO R/WRIST CDI NO BLEEDING NO HEMATOMA NOTED. AT SIDE
--- NOTE | 2016-10-15 15:23 | NUR ---
REPORT CALLED TO OUTPATIENT FOR TRANSFER. DR HASSAN PRESENT NO NEW PAIN MEDICATION ORDERED AT THIS TIME. LEFT VIA STRETCHER WITH STAFF
--- NOTE | 2016-10-15 17:00 | NUR ---
RIGHT WRIST TR BAND AIR WEANING IN PROGRESS, NO BLEEDING, SWELLING OR BRUISING NOTED AT RIGHT RADIAL PUNCTURE SITE. WRIST REST IN EFFECT
--- NOTE | 2016-10-15 17:30 | NUR ---
RIGHT WRIST TR BAND REMOVED, NO BLEEDING OR BRUISING AT SITE, DRESSING PLACED TO RADIAL PUNCTURE SITE
--- NOTE | 2016-10-15 17:40 | NUR ---
DISCHARGE INSTRUCTIONS REVIEWED WITH PATIENT AND SPOUSE. PATIENT CONTINUES TO COMPLAIN OF CHEST AND BACK DISCOMFORT, DR HASSAN AWARE, NO CHANGE IN NETWORK DIAGNOSTIC SUPPORT SPECIALIST. PATIENT TAKES TRAMADOL AT HOME, INSTRUCTED TO CONTINUE WITH TRAMADOL PRESCRIBED. DISCHARGED HOME VIA WHEELCHAIR TO PRIVATE VEHICLE WITH SPOUSE
== END 2016-10-15 17:40 | disposition home or self-care (01) ==
LOC: D.CATH 11:06
PROVIDERS: Internal Medicine Interventional Cardiology
DX: I25.10 Atherosclerotic heart disease of native coronary artery without angina pectoris (principal); I10 Essential (primary) hypertension; K21.9 Gastro-esophageal reflux disease without esophagitis; E78.5 Hyperlipidemia, unspecified

== ENCOUNTER 2016-10-16 13:06 | Inpatient (IN) | payer MEDICARE ==
[2016-10-16] VITALS (7 sets, daily range): BP systolic 96–143; BP diastolic 57–84; BMI 25.8
[~2016-10-16] VITALS: Ht 152.4 cm; Wt 62.9 kg
--- NOTE | ~2016-10-16 | HEMODYNAMI ---
PATIENT:MOON HOWARD MEDICAL RECORD: [id number] : 41 [id number] ADMISSION DATE: 10/16/16 Generatedon:10/17/201616:09 Patient name: MOON HOWARD Patient #: [id number] : 1945 Date of study: 10/17/2016 Page: Of Hemodynamic Procedure Report Patient Data Patient Demographics Procedure consent was obtained First Name: MOON Gender: Female Last Name: ANITA : 1945 Middle Initial: M Age: 71 year(s) Patient #: [id number] Race: SSN: [id number] Additional ID: [id number] Contact details [address]: [address] [place] [address] State: [place] City: [place] Zip code: [address] Past Medical History Allergies Allergen Reaction Date Comments Reported Other allergy 10/09/2016 Cipro, Acetaminophen, Propoxyphyne napsylate Penicillins 10/09/2016 Other allergy 10/15/2016 Ciprofloxin,PCN, ASA, Darvocet Other allergy 10/17/2016 cipro,pcn,darvocet Admission Admission Data Admission Date: 10/16/2016 Admission Time: 16:11 Room #: D.2303 Lab Results Lab Result Date: 10/16/2016 Lab Result Time: 17:20 Biochemistry Name Units Result Min Max Creatinine mg/dl 1 --(--*-)-- 0.6 1.3 CBC Name Units Result Min Max Hemoglobin g/dl 12.2 *-(----)-- 13.5 17.5 Procedure Procedure Types Cath Procedure Diagnostic Procedure LHC Coronaries only PCI Procedure Coronary Stent Initial Procedure Description Procedure Date Procedure Date: 10/17/2016 Procedure Start Time: 15:19 Procedure End Time: 16:03 Procedure Staff Name Function Sri Green RT Monitor Dylan Noel RN Superintendent Transmission Sunny Armenta RN Nurse Henrique Fox MD Performing Physician Gumaro Centeno RT Scrub Sandip Akhtar RT Monitor Procedure Data Cath Procedure Fluoroscopy Diagnostic fluoroscopy Total fluoroscopy Time: time: 10.1 min 10.1 min Diagnostic fluoroscopy Total fluoroscopy dose: dose: 1029 mGy 1029 mGy Contrast Material Contrast Material Type Amount (ml) Isovue 300 144 Entry Location Entry Primary Successful Side Size Upsize Upsize Entry Closure Succes sful Closure Location (Fr) 1 (Fr) 2 (Fr) Remarks Device Remarks Femoral Right 5 Fr 6 Fr Exoseal artery Short Diagnostic catheters Device Type Used For End Catheter Placement Cordis 5Fr JL 4.0 Left Coronary Catheter (MP) Angiography Cordis 5Fr 3DRC Catheter Right Coronary (MP) Angiography Cordis Infinity 5Fr 3DRC Right Coronary catheter Angiography Cordis Infinity 5Fr JL 4.0 catheter Procedure Medications Medication Administration Route Dosage Oxygen NC 2 l/min Lidocaine 2% added to field 20 Heparin Flush Bag added to field 2 bags (1000units/500ml NS) 0.9% NaCl I.V. 100 ml/hr Versed I.V. 1 mg Fentanyl I.V. 50 mcg Heparin Bolus I.V. 6000 units 0.9% NaCl I.V. bolus 250 ml Nitroglycerin IC/IA I.C. 100 mcg Versed I.V. 0.5 mg Fentanyl I.V. 25 mcg Cardene I.C. 150 mcg Hemodynamics Rest HGB: 12.2 (g/dl) Pre Cath Intra NCS Post Cath Vital Signs Time Heart Resp SPO2 etCO2 FW9oaxs NIBP (mmHg) Rhythm Pain Sedatio n Rate (ipm) (%) (mmHg) (mmHg) Status Level (bpm) 15:05:19 64 16 98 0 0 Measuring NSR 0 (11) 10(A) , No pain 15:05:45 64 19 98 0 0 149/115(143) NSR 0 (11) 10(A) , No pain 15:09:02 72 33 98 0 0 Measuring NSR 0 (11) 10(A) , No pain 15:13:59 63 15 98 0 0 117/63(92) NSR 0 (11) 10(A) , No pain 15:18:05 66 17 97 0 0 92/59(72) NSR 0 (11) 9(A) , No pain 15:21:54 61 16 98 0 0 111/100(105) NSR 0 (11) 9(A) , No pain 15:25:58 62 17 96 0 0 95/57(78) NSR 0 (11) 9(A) , No pain 15:30:00 61 17 96 0 0 96/52(74) NSR 0 (11) 9(A) , No pain 15:33:59 59 15 98 0 0 99/56(81) NSR 0 (11) 9(A) , No pain 15:38:01 60 22 98 0 0 95/53(83) NSR 0 (11) 9(A) , No pain 15:42:01 60 16 98 0 0 99/54(77) NSR 0 (11) 9(A) , No pain 15:46:00 61 18 99 0 0 104/59(87) NSR 0 (11) 9(A) , No pain 15:50:02 65 18 97 0 0 96/60(80) NSR 0 (11) 9(A) , No pain 15:54:02 61 20 96 0 0 100/54(76) NSR 0 (11) 9(A) , No pain 15:58:03 61 18 98 0 0 98/55(76) NSR 0 (11) 10(A) , No pain 16:02:05 62 23 98 0 0 100/56(82) NSR 0 (11) 10(A) , No pain 16:06:05 60 16 99 0 0 100/59(81) NSR 0 (11) 10(A) , No pain Medications Time Medication Route Dose Verified Delivered Reason Notes Effectiveness by by 15:02:27 Oxygen NC 2 Henrique Henrique used for l/min Ruddy Fox MD procedure 15:02:37 Lidocaine 2% added 20ml Henrique Henrique for local to vial Ruddy Fox MD anesthetic field 15:03:13 Heparin Flush added 2 Henrique Henrique used for Bag to bags Ruddy Fox MD procedure (1000units/500ml field NS) 15:03:21 0.9% NaCl I.V. 100 Henrique Buffie Per physician ml/hr Ruddy Armenta RN 15:15:45 Versed I.V. 1 mg Henrique Buffie for sedation Ruddy Armenta RN 15:15:50 Fentanyl I.V. 50 Henrique Buffie for sedation mcg Ruddy Armenta RN 15:18:28 0.9% NaCl I.V. 250 Henrique Buffie Per physician bolus ml Ruddy Armenta RN 15:34:53 Heparin Bolus I.V. 6,000 Henrique Buffie for units Ruddy Armenta RN anticoagulation 15:48:42 Nitroglycerin I.C. 100 Henrique Henrique for IC/IA mcg Ruddy Fox MD vasodilation 15:48:48 Versed I.V. 0.5 Henrique Buffie for sedation mg Ruddy Armenta RN 15:48:53 Fentanyl I.V. 25 Henrique Buffie for sedation mcg Ruddy Armenta RN 15:54:31 Cardene I.C. 150 Henrique Henrique for mcg Ruddy Fox MD vasodilation Procedure Log Time Note 14:31:06 Dylan Noel RN sent for patient. Start room use. 14:54:11 Informed consent obtained and on chart 14:56:00 ACC Patient presents with Unstable Angina CCS Anginal Class 4--Inability to carry out any physical activity w/o angina. Angina may occur at rest. 14:56:30 Time tracking: Regular hours 14:56:35 Plan of Care:Hemodynamics will remain stable., Cardiac rhythm will remain stable., Comfort level will be maintained., Respiratory function will remain adequate., Patient/ family verbilizes understanding of procedure., Procedure tolerated without complication., Recovers from procedure without complications.. 14:56:41 Patient received from ICU to [facility] 2 Alert and oriented. Tansferred to table in Supine position. 14:56:45 Warm blankets applied, and pia hugger turned on for patient comfort. 14:56:46 ECG and BP/O2 sat monitors applied to patient. 14:56:46 Correct patient and procedure confirmed by team. 14:57:31 Lab Result : Hemoglobin 12.2 g/dl 14:57:31 Lab Result : Creatinine 1 mg/dl 14:57:34 Lab results completed and on chart. 14:58:48 H&P Date Dictated: 10/16/2016 Within 30 days and on chart.. 14:58:49 Pre-procedure instructions explained to patient. 14:58:50 Pre-op teaching completed and patient verbalized understanding. 14:58:50 Pre-procedure instructions explained to patient. 14:58:53 Family unavailable. 14:58:54 Patient NPO since Midnight. 14:59:46 Patient allergic to Other allergycipro,pcn,darvocet 15:00:33 Is the patient allergic to Iodine/contrast media? No. 15:00:34 Is patient on blood thinner?Yes 15:00:37 ACC The patient was administered the following blood thiners within the last 24 hours: ACCPlavix 15:00:39 Patient diabetic? No. 15:00:42 Previous problem with sedation/anesthesia? No ? 15:00:47 Snore? Yes 15:00:48 Sleep apnea? No 15:00:50 Deviated septum? No 15:00:51 Opens mouth fully? Yes 15:00:52 Sticks out tongue? Yes 15:00:54 Airway obstruction? No ? 15:00:56 Dentures? No ? 15:02:27 Oxygen 2 l/min NC was given by Henrique Fox MD; used for procedure; 15:02:37 Lidocaine 2% 20ml vial added to field was given by Henrique Fox MD; for local anesthetic; 15:03:13 Heparin Flush Bag (1000units/500ml NS) 2 bags added to field was given by Henrique Fox MD; used for procedure; 15:03:21 0.9% NaCl 100 ml/hr I.V. was given by Sunny Armenta RN; Per physician; 15:03:30 Vital chart was started 15:03:57 Rhythm: sinus rhythm 15:04:04 Full Disclosure recording started 15:04:18 Pre procedure: left dorsailis pedis pulse 2+ Normal; easily identifiable; not easily obliterated 15:04:21 Patient pain scale 0/10 ?. 15:04:28 IV patent on arrival in left hand with 0.9% NaCl at [facility]. 15:04:34 Left groin area was prepped with chlora-prep and draped in sterile fashion 15:04:36 Sharps counted by scrub and verified by R.N. 15:04:36 Alarms reviewed by R. N. 15:04:40 Use device set Femoral Dx 15:04:42 Acist Syringe opened to sterile field. 15:04:43 Cardinal Cath Pack opened to sterile field. 15:04:43 Bag Decanter opened to sterile field. 15:04:45 St Bernard 260cm J .035 wire opened to sterile field. 15:04:47 Acist Manifold opened to sterile field. 15:04:47 Acist Hand Control opened to sterile field. 15:04:48 Tegaderm 4 x 4 opened to sterile field. 15:04:48 Cordis Infinity 5Fr Multipack catheter opened to sterile field. 15:07:12 Vital chart was stopped 15:07:13 Vital chart was started 15:12:46 Physician arrived 15::47 --------ALL STOP TIME OUT------ 15:12:50 Final Timeout: patient, procedure, and site verified with staff and physician. All members of the team are in agreement. 15:12:54 Left groin site verified by team. 15:14:20 Sedation plan: IV Moderate Sedation Versed, Fentanyl 15:15:45 Versed 1 mg I.V. was given by Sunny Armenta RN; for sedation; 15:15:50 Fentanyl 50 mcg I.V. was given by Sunny Armenta RN; for sedation; 15:18:07 Procedure started. 15:18:28 0.9% NaCl 250 ml I.V. bolus was given by Sunyn Armenta RN; Per physician; 15:19:50 Local anesthetic to left femerol artery with Lidocaine 2% by Henrique Fox MD.INITIAL ACCESS ONLY 15:20:01 A 5 Fr sheath was inserted into the Right Femoral artery 15:22:17 A Cordis 5Fr JL 4.0 Catheter (MP) was advanced over the wire and used for Left Coronary Angiography. 15:24:00 LCA angiography performed. 15:24:32 Catheter removed. 15:24:41 Terumo 5Fr [place] Sheath opened to sterile field. 15:24:46 A Cordis 5Fr 3DRC Catheter (MP) was advanced over the wire and used for Right Coronary Angiography. 15:25:44 RCA angiography performed. 15:26:04 Catheter removed. 15:26:14 Merit BasixCompak Inflation Kit opened to sterile field. 15:26:30 Cordis 6FR XBLAD 3.5 guide catheter opened to sterile field. 15:27:17 High Pressure Extension Tubing (Ruddy) opened to sterile field. 15:28:34 [facility] Luge Straight 300cm 0.014 guide wire opened to sterile field. 15:29:33 ACC PCI Site: pCirc has 99% stenosis. 15:29:36 ACC Pre-intervention ALEXANDRA Flow is 3. 15:30:04 Sheath upsized to a 6 Fr Short. 15:30:13 6 Fr XBLAD 3.5 guide catheter was inserted over the wire 15:30:21 LUGE wire advanced. 15:30:58 [place] [employer] Luge Straight 300cm 0.014 guide wire opened to sterile field. 15:33:08 Wire removed. 15:33:25 Haque Whisper J 300cm 0.014 guide wire opened to sterile field. 15:33:52 WHISPER wire advanced. 15:34:53 Heparin Bolus 6,000 units I.V. was given by Sunny Armenta RN; for anticoagulation; 15:37:40 Inflation number: 1 A [place] [employer] Stanley 2.0 X 15 balloon was prepped and advanced across the Prox CX, then inflated to 8 TAHIR for 0:46 (min:sec). 15:38:37 Haque BMW [place] 2 J-tip 300cm 0.014 guide wir opened to sterile field. 15:38:48 Wire removed. 15:38:54 BMW 2 wire advanced. 15:39:13 Balloon removed over the wire. 15:48:01 Inflation Number: 2 A Medtronic Integrity 2.75 X 18 stent was prepped and advanced across the Prox CX. The stent was deployed at 10 TAHIR for 0:29 (min:sec). 15:48:42 Nitroglycerin IC/IA 100 mcg I.C. was given by Henrique Fox MD; for vasodilation; 15:48:48 Versed 0.5 mg I.V. was given by Sunny Armenta RN; for sedation; 15:48:53 Fentanyl 25 mcg I.V. was given by Sunny Armenta RN; for sedation; 15:53:06 Stent catheter was removed intact over wire. 15:53:28 Inflation Number: 3 A Medtronic Integrity 2.5 x 14 stent was prepped and advanced across the Prox CX. The stent was deployed at 14 TAHIR for 0:10 (min:sec). 15:54:31 Cardene 150 mcg I.C. was given by Henrique Fox MD; for vasodilation; 15:56:34 Stent catheter was removed intact over wire. 15:56:35 Wire removed. 15:56:36 Guide catheter removed. 15:58:32 Contrast amount:Isovue 300 144ml. 15:58:40 Sheath removed intact; hemostasis achieved with Exoseal to the Right Femoral artery. 15:58:41 Procedure ended.(Physican Out) 15:59:20 Fluoroscopy time 10.10 minutes. 15:59:25 Fluoroscopy dose: 1029 mGy 15:59:25 Flurop Dose total: 1029 15:59:28 Sharps counted by scrub and verified by R.N. 15:59:30 Insertion/operative site no bleeding no hematoma. 15:59:33 Post-op/insertion site Left Femoral artery dressed using a 4 x 4 and Tegaderm. 16:00:15 Post left femerol artery:stable 16:00:17 Post Procedure Pulses reassessed and unchanged 16:00:21 Post procedure rhythm: sinus rhythm 16:00:27 Post procedure instruction explained to patient.Patient verbalizes understanding. 16:00:45 Procedure type changed to Cath procedure, Diagnostic procedure, LHC, Coronaries only, PCI procedure, Coronary Stent Initial 16:00:51 Procedure and supply charges have been captured, reviewed, submitted and are correct. 16:02:40 Cordis 6Fr Exoseal opened to sterile field. 16:02:56 A Cordis Infinity 5Fr 3DRC catheter was advanced over the wire and used for Right Coronary Angiography. 16:03:00 A Cordis Infinity 5Fr JL 4.0 catheter was advanced over the wire and used for . 16:03:13 See physician's report for complete and final results. 16:03:17 Report given to ICU. 16:03:21 Patient transfered to ICU with Bed. 16:03:23 Full Disclosure recording stopped 16:03:23 Procedure ended. 16:03:58 End room use (Document Last) Intervention Summary Intervention Notes Time ActionType Lesion and Equipment Action# Pressure Duration Attributes Used 15:37:40 Inflate Prox CX [place] 1 8 00:46 balloon Sci Stanley 2.0 X 15 balloon 15:48:01 Place stent Prox CX Medtronic 2 10 00:29 Integrity 2.75 X 18 stent 15:53:28 Place stent Prox CX Medtronic 3 14 00:10 Integrity 2.5 x 14 stent Device Usage Item Name Manufacture Quantity Catalog Number Hospital Part Current Mini mal Lot# / Charge Number Stock Stock Serial# Code Acist Acist 1 46968 [id number] 248580 277841 20 Syringe Medical Systems Inc Bag Microtek 1 2002S 852646 67536 917305 5 DecCricHQ Medical Inc. Cardinal Cardinal 1 [id number] 173229 38828 137[address] [facility] Bernard 1 [id number] 532416 259111 492690 30 260cm J .035 wire Acist Hand Acist 1 57768 517220 391082 646602 5 Control Medical Systems Inc Acist Acist 1 31922 942298 770527 125847 5 [employer] Medical Systems Inc Cordis Cardinal 1 [id number] 174897 35623 317950 30 Infinity Health 5Fr Multipack catheter Tegaderm 4 3M 1 1626W 989193 721502 330717 5 x 4 Cordis 5Fr Cardinal 1 720531 5 JL 4.0 Health Catheter (MP) Terumo 5Fr Terumo 1 [id number] 253710 201846 179468 40 [place] Sheath Cordis 5Fr Cardinal 1 385995 5 3DRC Health Catheter (MP) Merit Merit 1 NC2564 377043 750454 496334 15 BasixCompak Medical Inflation Kit Cordis 6FR Cardinal 1 [id number] 515447 188287 401214 10 XBLAD 3.5 Health guide catheter High Merit 1 [id number] 301572 03150 746451 10 Pressure Medical Extension Tubing (Fox) [place] Sci [place] 2 [id number] 716947 778453 925198 5 Luge Scientific Straight 300cm 0.014 guide wire Haque Haque 1 [id number] 681780 448235 288293 5 Whisper J Vascular 300cm 0.014 guide wire [place] Sci [place] 1 [id number] 573140 625930 989901 1 [id number] Stanley Scientific 2.0 X 15 balloon Haque BMW Haque 1 [id number] 362951 848839 514298 5 [place] 2 Vascular J-tip 300cm 0.014 guide wir Medtronic Medtronic 1 [id number] 072935 554263 175866 9 [id number] Integrity 2.75 X 18 stent Medtronic Medtronic 1 [id number] 643551 438234 3 [id number] Integrity 2.5 x 14 stent Cordis 6Fr Cardinal 1 EX600 524596 884168 903558 10 Exoseal Health Cordis Cardinal 1 [id number] 834593 817066 060773 9 Infinity Health 5Fr 3DRC catheter Cordis Cardinal 1 [id number] 506536 792113 549881 10 Infinity Health 5Fr JL 4.0 catheter Signature Audit [place] Stage Time Signature Unsigned Intra-Procedure 10/17/2016 Sandip Akhtar 4:09:24 PM RT(R) Signatures Monitor : Sri Signature : Counts RT Date : Time : Monitor : Sandip Akhtar RT Signature : Date : Time : [place] [id number] [place] [address]
[~2016-10-16 13:06] MED LIST changes: +TYLENOL PM1 TAB PO
[2016-10-16 13:47] LABS: BASOPHILS 0.2 % (0.0-2.0); EOSINOPHILS 0.8 % (0-7); HEMATOCRIT 36.5 % (36.0-48.0); HEMOGLOBIN 12.2 g/dL (12-16); IMMATURE GRANULOCYTES 0.3 % (0-5); LYMPHOCYTES 13.9 % (15-50); MCH 31.4 pg (26.0-34.0); MCHC 33.4 g/dL (31.0-37.0); MCV 94.1 fL (80.0-100.0); MONOCYTES 9.6 % (2-11); NEUTROPHILS 75.2 % (40-80); PLATELET COUNT 260 10x3/uL (130-400); RBC 3.88 10x6/uL (4.00-5.40); RDW 12.5 % (11.5-14.5); WBC 10.2 10x3/uL (4.8-10.8)
[2016-10-16 14:02] LABS: ALBUMIN 3.6 g/dL (3.4-5.0); ALKALINE PHOSPHATASE 58 U/L (46-116); ALT (SGPT) 45 U/L (10-68); CALC OSMOLALITY 273 mosm/kg (275-300); CALCIUM 9.5 mg/dL (8.5-10.1); CARBON DIOXIDE 27.1 mmol/L (21.0-32.0); CHLORIDE - SERUM 99 mmol/L (98-107); GLUCOSE 122 mg/dL (74-106); POTASSIUM - SERUM 3.6 mmol/L (3.5-5.1); PROTEIN - SERUM 6.8 g/dL (6.4-8.2); SODIUM 136 mmol/L (136-145); UREA NITROGEN 16 mg/dL (7-18); eGFR NON AFRICAN AMERICAN 58 mL/min (90-120)
[2016-10-16 14:17] LABS: CHOL - HDL RATIO 4.2 ratio (2.3-4.1); CHOLESTEROL, TOTAL 217 mg/dL (0-200); CKMB 54.8 U/L (0.0-3.6); CREATINE KINASE 779 UL (21-215); HDL CHOLESTEROL 52 mg/dL (32-96); LDL CHOLESTEROL 108 mg/dL (0-100); LDL-HDL RATIO 2.1 ratio (1.5-3.5); TRIGLYCERIDE 288 mg/dL (30-200)
[2016-10-16 14:20] LABS: TROPONIN-I 20.012 ng/mL (0.000-0.060)
--- NOTE | 2016-10-16 17:01 | NUR ---
PATIENT ARRIVED TO THE FLOOR VIA STRETCHER. AMBULATED FROM STRETCHER TO BED. ASSESSMENT COMPLETED AT THIS TIME.
--- NOTE | 2016-10-16 18:04 | NUR ---
PATIENTS SATS 88% ON ROOM AIR. COUGH AND DEEP BREATHING BROUGHT THEM UP TO 91%. OXYGEN AT 2L N/C APPLIED TO KEEP SATS >93%.
--- NOTE | 2016-10-16 19:00 | NUR ---
REPORT RECIEVED, SHIFT ASSESSMENT COMPLETE, PT IS ALERT AND ORIENTED, ON 2L NC WITH 95% O2 SAT. LUNGS CLEAR IN ALL LOBES, S1S2, CM-NSR. PATENT RIGHT FA PIV WITH INTEGRELIN INFUSING VIA PUMP, ABODMEN IS SOFT AND ROUND WITH ACTIVE BS, BSC AT BEDSIDE, ALL PPP, VSS, CALL LIGHT IN REACH
--- NOTE | 2016-10-16 21:16 | NUR ---
NO FAMILY NOTED AT THIS TIME. VSS 2100 MEDS ADM WITHOUT DIFFICULTY. DENIES NEEDS. VSS WILL CONTINUE TO MONITOR.
--- NOTE | 2016-10-16 23:00 | NUR ---
REASSESSMENT COMPLETE, NO CHANGES NOTED, PT RESTING AT THIS TIME, NO NEEDS NOTED, VSS, CALL LIGHT IN REACH
[2016-10-17] VITALS (30 sets, daily range): BP systolic 81–146; BP diastolic 35–86; Ht 152.4 cm; Wt 62.9 kg
--- NOTE | 2016-10-17 01:00 | NUR ---
NO NEEDS NOTED AT THIS TIME, PT RESTING COMFORTABLY, WILL CON'T TO MONITOR
--- NOTE | 2016-10-17 03:07 | NUR ---
REASSESSMENT COMPLETE, NO CHANGES NOTED, PT DENIES ANY NEEDS OR WANTS, VSS, CALL LIGHT IN REACH
--- NOTE | 2016-10-17 05:00 | NUR ---
NO NEEDS NOTED AT THIS TIME, RESTING COMFORTABLY, WILL CON'T TO MONITOR
[2016-10-17 07:29] LABS: ALBUMIN 3.1 g/dL (3.4-5.0); ANION GAP 10.8 mmol/L (8-16); BILIRUBIN - TOTAL 0.69 mg/dL (0.2-1.3); CALCIUM 9.7 mg/dL (8.5-10.1); CARBON DIOXIDE 29.8 mmol/L (21.0-32.0); CREATININE - SERUM 0.9 mg/dL (0.6-1.3); POTASSIUM - SERUM 3.6 mmol/L (3.5-5.1); PROTEIN - SERUM 6.8 g/dL (6.4-8.2)
[2016-10-17 07:39] LABS: HEMATOCRIT 33.6 % (36.0-48.0); HEMOGLOBIN 11.5 g/dL (12-16); LYMPHOCYTES 18.4 % (15-50); MCH 31.6 pg (26.0-34.0); MCHC 34.2 g/dL (31.0-37.0); MCV 92.3 fL (80.0-100.0); NEUTROPHILS 70.7 % (40-80); PLATELET COUNT 303 10x3/uL (130-400); RBC 3.64 10x6/uL (4.00-5.40); RDW 12.5 % (11.5-14.5); WBC 8.6 10x3/uL (4.8-10.8)
--- NOTE | 2016-10-17 08:14 | NUR ---
SPOKE WITH PATIENTS SISTER ELIZABETH. SHE REQUESTED UPDATE AND ONE WAS GIVEN. SHE SAID THAT HER AND HER SISTER WILL BE HERE TOMORROW, THAT THEIR FLIGHT WILL LEAVE OUT LATE TONIGHT. REQUESTED THAT A BE CALLED TO COME AND SEE THE PATIENT TODAY. DISCUSSED HOSPICE CARE WITH HER. SHE STATED THAT HER AND HER SISTER WOULD DISCUSS IT ON THE FLIGHT IN AND WOULD LET US KNOW TOMORROW. PRIEST ROMEL CALLED AT [phone] TO COME AND SEE PATIENT.
--- NOTE | 2016-10-17 08:39 | NUR ---
PATIENT REQUESTED NEW IV SITE SECONDARY TO PAIN WHEN BENDING ARM. IV RESITED TO RIGHT FA WITH ONE STICK WITH 20G. PATIENT TOLERATED WELL. PER HER REQUEST, DC'D 20G FROM RIGHT AC WITH TIP INTACT.
--- NOTE | 2016-10-17 08:45 | NUR ---
Is the patient Alert and Oriented? Yes 0 * How many steps to enter\exit or inside your home? 5 0 * PCP DR. CLANCY 0 * Pharmacy [facility] [address] FOR IMMEDIATE NEEDS MAIL ORDER FOR HYDRAULIC LIFT OPERATOR MEDS 0 * Preadmission Environment Home with Family 0 * ADLs Independent 0 * Equipment None 0 * List name and contact numbers for known caregivers / representatives who currently or will assist patient after discharge: SPOUSE: CRISTAL HOWARD [phone] * Community resources currently utilized None 0 * Additional services required to return to the preadmission environment? No 0 * Can the patient safely return to the preadmission environment? Yes 0 * Has this patient been hospitalized within the prior 30 days at any hospital? Yes PATIENT STATES SHE LIVES AT HOME WITH HER , CRISTAL. SHE STATES SHE IS INDEPENDENT IN ALL ADL'S. PATIENT STATES HER WILL BE AVAILABLE TO DRIVE HER HOME AT DISCHARGE. PATIENT'S PCP IS DR. CLANCY. SHE GETS HER IMMEDIATE NEEDED MEDS FROM [facility] [address]. SHE GETS HER DETENTION MEDS FROM MAIL ORDER. PATIENT DENIES USE OF ANY EQUIPMENT AND SHE DENIES EVER HAVING HOME HEATLH CARE. PATIENT STATES THERE ARE 4-5 STEPS TO ENTER HER HOME. PATIENT DENIES ANY DISCHARGE NEEDS AT THIS TIME INCLUDING HOME HEALTH CARE AT DISCHARGE.
--- NOTE | 2016-10-17 09:14 | NUR ---
PATIENT C/O NUMBNESS IN HER RIGHT HAND (FINGERTIPS). VITAL SIGNS CHECKED AND ARE CURRENTLY BETTER THAN HER ADMISSION VITALS. DENIES NUMBNESS ANYWHERE BESIDES HER FINGERTIPS. PATIENT IS HOLDING HER HAND UP IN THE AIR ABOVE HER HEAD. ENCOURAGED HER TO PUT HER HAND DOWN TO HER SIDE. DENIES CHEST PAIN, OR ANY OTHER PAIN. SPOUSE SAID THAT SHE DOES HAVE A TORN RIGHT ROTATOR CUFF. QUESTIONING ABOUT IF THIS HAS HAPPENED BEFORE, PATIENT SAID NO, SPOUSE SHOOK HIS HEAD YES. ENCOURAGED PATIENT TO NOT HANG HER AND AND NOT HOLD IT UP IN THE AIR. EXPLAINED WE WOULD KEEP AN EYE ON IT.
--- NOTE | 2016-10-17 09:31 | NUR ---
PATIENT SITTING UP IN BED TEXTING ON HER PHONE WITH BOTH HANDS. AT THIS TIME NUMBNESS IS BETTER.
--- NOTE | 2016-10-17 12:35 | NUR ---
PATIENT C/O NUMBNESS TO HER RIGHT FINGERTIPS SOON HER SPOUSE CAME IN FOR VISITATION. NO C/O THIS NUMBNESS UNTIL THEN. PER HER REQUEST IV RESITED TO LEFT OUTTER FOREARM (SPOT SPECIFICALLY PICKED BY PATIENT). IT WAS DONE WITH A 20G ON THE FIRST STICK. NUMBNESS TO LEFT FINGERS STOPPED THE NEW IV SITE WAS BEING SECURED. WENT AHEAD AND DC'D THE IV THAT WAS SITED TO HER RIGHT FOREARM PER PATIENTS REQUEST. INTEGRILIN DRIP STOPPED AT THIS TIME ALSO. ITS 18 HOURS OF INFUSION HAS COMPLETED.
--- NOTE | 2016-10-17 13:17 | NUR ---
PATIENT PRE-OPED PER ORDERS.
--- NOTE | 2016-10-17 14:22 | NUR ---
SPOKE WITH EVANGELINA IN MEDICAL DOCTOR NUCLEAR MEDICINE TO GIVE HER AN UPDATE THAT PATIENTS B/P RUNNING 80'S/50'S AND MAP REMAINS IN LOW 60'S. SHE STATED OK AND THAT SHE WAS THE NEXT CASE.
--- NOTE | 2016-10-17 14:36 | NUR ---
PT TAKEN TO BRICKLAYER APPRENTICE. VITALS WERE REVIEWED WITH RICHY JACOBS PRIOR TO LEAVING. HE STATED THEY DID THE SAME THING 2 DAYS AGO WHEN THEY GAVE HER SEDATION.
--- NOTE | 2016-10-17 16:07 | NUR ---
PATIENT BACK FROM ASSOCIATE PROFESSOR OF MUSIC. ASSESSMENT COMPLETED. VITALS STABLE. PLACED ON BEDPAN PER PATIENTS REQUEST. WILL ASSIST WITH MEAL.
--- NOTE | 2016-10-17 17:53 | NUR ---
PATIENT UNABLE TO VOID AFTER 4 ATTEMPTS ON THE BED SMITH. BLADDER IS SLIGHTLY PALPABLE. CALL PLACED TO DR GERARD (DIESEL DINKEY ENGINEER FOR VLADIMIR) TO SEE ABOUT IN AND OUT CATH SINCE PATIENT IS STILL NOT ABLE TO GET UP.
--- NOTE | 2016-10-17 17:54 | NUR ---
SPOKE WITH DR GERARD, ORDER RECEIVED FOR IN AND OUT CATH.
--- NOTE | 2016-10-17 18:20 | NUR ---
IN AND OUT CATH COMPLETED. RECEIVED 600ML OF CLEAR YELLOW URINE. PATIENT ALSO HAD A LARGE SOFT BOWEL MOVEMENT IN THE BEDPAN.
--- NOTE | 2016-10-17 18:30 | NUR ---
PT HAS DEVELOPED A KNOT/SWELLING TO THE INSIDE OF HER INNER LEFT THIGH. PATIENT IS HAVING A HARD TIME KEEPING HER LEGS STILL. CALL PLACED TO YARD LOADER OPERATOR, ALL HAVE LEFT FOR THE DAY. DR GERARD PAGED TO SEE IF HE WANT FURTHER ORDERS.
--- NOTE | 2016-10-17 18:51 | NUR ---
FEMSTOP APPLIED TO LEFT GROIN PER ORDERS. PULSE SITE MARKED FOR DOPPLAR LOCATION.
--- NOTE | 2016-10-17 18:54 | NUR ---
PLEASE NOTE THAT THE SMALL KNOT/SWELLED AREA LOOKED TO ALMOST TRIPLE IN THE TIME THAT IT WAS INITIALLY NOTICED, DR GERARD CALLED, FEMSTOP OBTAINED AND THIS NURSE FOUND A NURSE TO SHOW HER HOW TO APPLY THE FEMSTOP. PATIENT STILL REFUSING TO LAY STILL, EVEN THE FEMSTOP WAS BEING APPLIED.
--- NOTE | 2016-10-17 19:34 | NUR ---
REOPRT RECIEVED. ASSESSMENT COMPLETE PER FLOW SHEET. PT AWAKE ALERT ORIENTED X3 RESTLESS AGITATED, R WRIST PULSE UNABLE TO FIND VIA PALP OR DOPPLER, L RADIAL PALP +2 R PEDAL PUSLES PALP +2 L PEDAL PULSES FOUND VIA DOPPLER. R HAND COOL TO TOUCH VS L HAND R HAND COLOR SLIGHTLY PALE COMPARED TO L HAND R BRACHIAL PULSE FOUND VIA DOPPLER, PT C/O OF NUMBNESS FROM ELBOW TO HAND. WILL NOTIFY DR. Negrete GROIN HEMATOMA NOTED FEM STOP ON APPROPRIATELY EDUCATION ON LYING FLAT WITH LEG STRAIGHT ENCOURAGED PT UNCOOROPERATIVE. PT C/O OF L LATERAL BACK BACK PAIN AND R ARM PAIN GENERALIZED ABD PAIN. ASSISTED ONTO BEDPAN PER REUQEST SMALL LOOSE BM NOTED. STATES PAIN 10/10. NO PAIN MEDS ORDERED WILL NOTIFY BP 89/58 VIA L ARM MAP 61. GIVEN ICE WATER PER REQUEST. WILL CONTINUE TO MONITOR. NURSE AT BEDSIDE. WILL OBTAIN STAT H&H.
[2016-10-17 20:12] LABS: HEMATOCRIT 31.4 % (36.0-48.0); HEMOGLOBIN 10.3 g/dL (12-16)
--- NOTE | 2016-10-17 20:14 | NUR ---
LARGE LOOSE BM NOTED. REPOSITIONED UP IN BED. FEM STOP ON APPROPRIATELY. WILL CONTINUE TO MONITOR.
--- NOTE | 2016-10-17 21:01 | NUR ---
DR RAJANI MENCHACA, PT STATUS UPDATE GIVEN SBP 70'S 80'S MAP ABOVE 60 L GROIN LARGE HEMATOMA WITH FEM STOP PRESENT L LATERAL BACK PAIN PT RESTLESS STAT H&H REVIEWED 08/06 NO SIGNIFICANT DROP PT C/O OF PAIN FROM BACK ABD AND R HAND TO ELBOW R HAND NUMB NO SIGNIFICANT COLOR CHANGE NOTED SLIGHTLY COOLER TO TOUCH THAN L HAND NO PULSE PALP OR FOUND VIA DOPPLER. NEW ORDERS FOR MORPHINE 4MG Q1H FOR PAIN LOVENOX 1MG/KG X1 FOR R HAND. WILL ADM.
--- NOTE | 2016-10-17 23:10 | NUR ---
REASSESSMENT COMPLETE, NO CHANGES NOTED, PT RESTING AT THIS TIME, PT ALERT AND ORIENTED, ON RA WITH 95% O2 SAT. LUNGS CLEAR IN ALL LOBES, S1S2, CM-NSR, PATENT LEFT FA PIV WITH NS INFUSING VIA PUMP, RIGHT RADIAL PULSE ABSENT AT THIS TIME, DR. GILBERT AWARE, ALL OTHER PULSES PALPABLE, ABDOMEN IS SOFT AND ROUND WITH ACTIVE BS, FEM STOP TO LEFT GROIN, HEMETOMA NOTED AT THIS TIME, VLADIMIR RODAS AWARE, NO OTHER NEEDS NOTED AT THIS TIME, WILL CON'T TO MONITOR
[2016-10-18] VITALS (24 sets, daily range): BP systolic 60–111; BP diastolic 24–69
[2016-10-18 01:07] LABS: HEMATOCRIT 23.7 % (36.0-48.0); HEMOGLOBIN 8.1 g/dL (12-16)
--- NOTE | 2016-10-18 01:52 | NUR ---
UPDATE GIVEN TO DR. GERARD, NEW ORDERS RECIEVED
--- NOTE | 2016-10-18 03:18 | NUR ---
REPORT RECIEVED, SHIFT ASSESSMENT COMPLETE, PT IS RESTING COMFORTABLY AT THIS TIME, NO NEEDS NOTED, WILL CON'T TO MONITOR
--- NOTE | 2016-10-18 05:28 | NUR ---
1ST UNIT OF PRBC INIATED AT THIS TIME,
--- NOTE | 2016-10-18 10:03 | NUR ---
2ND UNIT PRBC FINISHED
--- NOTE | 2016-10-18 10:03 | NUR ---
2ND UNIT PRBC STARTED.
--- NOTE | 2016-10-18 10:37 | NUR ---
PT BP LOW 86/45. PED PULSES ONLY BY DOPPLER. STAT H&H DRAWN. PLASTICS PRODUCTION MACHINE OPERATOR TEAM CAME AND EXAMINED PT. ASSESSED PULSES. PROVIDER CONTACTED AND CT ORDERED
[2016-10-18 11:33] LABS: HEMATOCRIT 19.4 % (36.0-48.0); HEMOGLOBIN 6.3 g/dL (12-16)
--- NOTE | 2016-10-18 11:39 | NUR ---
RESULTS BACK FROM H&H (). DR VLADIMIR MENCHACA. ORDERED 2 MORE UNITS PRBC.
--- NOTE | 2016-10-18 13:19 | NUR ---
JAIL THROUGH FIRST UNIT PRBC. BP COMING UP, 103/41
--- NOTE | 2016-10-18 14:00 | NUR ---
PT ASSSISTED UP TO BEDSIDE TOILET. 350 URINE OUTPUT
--- NOTE | 2016-10-18 16:05 | NUR ---
PT ASSISTED UP TO BEDSIDE TOILET. 150ML URINE OUTPUT
--- NOTE | 2016-10-18 17:25 | NUR ---
SECOND UNIT OF BLOOD COMPLETE. H&H ORDERED.
--- NOTE | 2016-10-18 19:00 | NUR ---
REPORT RECIEVED, SHIFT ASSESSMENT COMPLETE, PT IS ALERT AND ORIENTED, ON RA WITH 95% O2 SAT, LUNGS CLEAR IN ALL LOBES, S1S2, CM-NSR, PATENT LEFT FA PIV S/L, ABDOMEN IS SOFT AND ROUND WITH ACTIVE BS, BSC AT BEDSIDE, ALL PPP, VSS, CALL LIGHT IN REACH
[2016-10-18 19:20] LABS: HEMATOCRIT 40.3 % (36.0-48.0); HEMOGLOBIN 14.1 g/dL (12-16)
--- NOTE | 2016-10-18 21:21 | NUR ---
NO VISITORS AT THIS TIME, PT RESTING COMFORTABLY, WILL CON'T TO MONITOR
--- NOTE | 2016-10-18 23:17 | NUR ---
REASSESSMENT COMPLETE, NO CHAGNES NOTED, PT RESTING AT THIS TIME, NO NEEDS NOTED, VSS, CALL LIGHT IN REACH
[2016-10-19] VITALS (10 sets, daily range): BP systolic 90–155; BP diastolic 30–85
--- NOTE | 2016-10-19 01:10 | NUR ---
NO NEW CHANGES AT THIS TIME. VSS PT SLEEPING COMFORTABLY. WILL CONTINUE TO MONITOR.
--- NOTE | 2016-10-19 03:12 | NUR ---
REASSESSMENT COMPLETE PER FLOW SHEET.V SS. NO NEW CHANGES A THIS TIME. WILL CONTINUE TO MONITOR.
--- NOTE | 2016-10-19 05:14 | NUR ---
PT RESTING AT THIS TIME, NO NEEDS NOTED, WILL CON'T TO MONITOR
--- NOTE | 2016-10-19 07:00 | NUR ---
REPORT RECEIVED, PATIENT IN LEFT LATERAL POSITION. DENIES NEEDS. ASSESSMENT COMPLETED AT THIS TIME.
--- NOTE | 2016-10-19 09:26 | NUR ---
RECEIVED PT FREOM ICU VIA WHEELCHAIR. NO OTHER NEEDS AT THIS TIME. PT SR ON TELEMETRY WILL CONTINUE TO MONITOR.
--- NOTE | 2016-10-19 11:11 | EC ---
PATIENT:MOON HOWARD DATE OF SERVICE: 10/16/16 SEX: F MEDICAL RECORD: [id number] DATE OF : [birth year] LOCATION:D.M2 D.210 AGE OF PATIENT: 71 ADMISSION DATE: 10/16/16 REFERRING PHYSICIAN: INTERPRETING PHYSICIAN: ANTONIA GERARD MD ECHOCARDIOGRAM REPORT ECHO CHARGES 4 ECHO COMPLETE CLINICAL DIAGNOSIS: NON Q TX ECHOCARDIOGRAPHIC MEASUREMENTS (adult normal given) AC root (d.<3.7cm) 3.5 LV Septum d (<1.2 cm> 1.4 Valve Excursion 1.9 LV Septum (systole) 1.9 Left Atria (s.<4.0cm> 3.3 LVPW d(<1.2cm) 1.6 RV (d.<2.3cm) 3.3 LVPW (sytole) 1.7 LV diastole(<5.6CM) 5.2 MV E-F(>70mm/sec) LV systole 3.9 LVOT Diameter MV exc.(>10mm) 1.4 Est.ejection fraction (50-75%) Pericardial Effusion N DOPPLER: LVIT A 123 E 58.0 LA RVSP 31 LVOT 85 AOP1/2T Asc. Ao 114 RVOT 82 RA PA 100 AV Gradient Peak 5.17 AV Mean 2.07 AV Area 2.5 MV Gradient Peak 7.45 MV Mean 1.82 MV Area COMMENTS: Roving Department Supervisor: Yordan SCHAEFFER Cash Accounting Clerk:Yordan Fox TAPE# PACS DATE OF SERVICE: 10/18/2016 Echocardiogram FINDINGS: 1. Left ventricular chamber size is within normal limits. Left ventricular systolic function is normal. Overall ejection fraction estimated at 50% to 55%. 2. Left atrium, right atrium, and right ventricular chamber sizes are within normal limits. Left atrium measures 3.3 cm. 3. Valvular structures have normal structure and motion. ECHOCARDIOGRAM REPORT [id number] MONO HOWARD 4. Doppler interrogation reveals mild mitral regurgitation, mild tricuspid regurgitation, no other valvular insufficiency or stenosis and pulmonary systolic pressure is normal estimated at 31 mmHg. 5. No evidence of pericardial effusion or left ventricular thrombus. TRANSINT:[id number] Voice Confirmation ID: [id number] DOCUMENT ID: [id number] ANTONIA GERARD MD at 1111 CC: [id number] DICTATION DATE: 10/18/16 1518 TRIAGE REGISTERED NURSE: 10/18/16 1533 ADM IN [place] [id number] [place] [id number]
--- NOTE | 2016-10-19 11:13 | NUR ---
Nutrition Follow Up: Chart reviewed. Diet: AHA 1800 kcal PO Intake: 75% (2 meal avg) Wt gain of 6# since admit I>O +BM 10/17/16 Meds: Prednisone Labs noted Pt with good po intake at this time. Rec continue current diet. RD following.
--- NOTE | 2016-10-19 13:18 | NUR ---
NO SS OF DISTRESS AT THIS TIME. WILL CONTINUE TO MONITOR NO OTHER NEEDS AT THIS TIME.
--- NOTE | 2016-10-19 21:01 | NUR ---
PROVIDED MEDICATIONS FOR PT TO TAKE PT TOOK ALL EXCEPT FOR TYLENOL PM, SAID SHE WOULD TAKE IT LATER. ENCOURAGED PT TO TAKE MEDICATION NOW, PT REFUSED
--- NOTE | 2016-10-19 22:00 | NUR ---
PT LEFT THIGH ASSESED. BRUISING NOTED. NO FIRMNESS OR TENDERNESS. NOTABLY WARMER THAN RIGHT THIGH. PT POST HEART CATH
--- NOTE | 2016-10-19 23:43 | NUR ---
LAYING IN BED WITH EYES CLOSED RESPIRATIONS OBSERVED. EVEN AND UNLABORED. CONTINUE TO MONITOR
[2016-10-20 00:45] VITALS: BP 116/60
[2016-10-20 04:20] VITALS: BP 118/42
--- NOTE | 2016-10-20 07:32 | NUR ---
PT LAYING ON BACK WITH EYES CLOSED RESTING. ON MONITOR SHOWING SR, HR 68. ON 02 AT 2L VIA NC. IV SEEN TO LEFT FOREARM SALINE LOCKED AND PATENT. PT IS ALERT AND ORIENTED. NO NEED AT CURRENT TIME. WILL CONTINUE TO MONITOR.
[2016-10-20 07:47] VITALS: BP 117/45
[2016-10-20 11:50] VITALS: BP 109/38
[2016-10-20 15:54] VITALS: BP 109/62
--- NOTE | 2016-10-20 18:24 | NUR ---
PT LAYING IN BED ON BACK RESTING. NO NEED AT CURRENT TIME. WILL CONTINUE TO MONITOR.
[2016-10-20 20:10] VITALS: BP 108/51
[2016-10-21 00:35] VITALS: BP 109/38
[2016-10-21 04:28] VITALS: BP 123/50
--- NOTE | 2016-10-21 07:26 | NUR ---
AM ROUNDING- PT LAYING IN BED ON LEFT SIDE SLEEPING WITH EYES CLOSED. ON MONITOR SHOWING SR, HR 57. IV SEEN TO LEFT FOREARM SALINE LOCKED AND PATENT. ON 02 AT 2L VIA NC. PT IS ALERT AND ORIENTED, UP AD SALLY. BRUISES SEEN TO BILATERAL LEGS, PER REPORT PT RECEIVED THOSE FROM WHEN SHE HAD HER STENT PLACEMENT. NO NEED AT CURRENT TIME. WILL CONTINUE TO MONITOR.
[2016-10-21 08:00] VITALS: BP 123/58
--- NOTE | 2016-10-21 10:54 | NUR ---
PATIENT TO BE DISCHARGE BY DR GILBERT FOLLOWING DC. HOME MEDICATIONS INCLUDE ASA, SOTALOL, LISINOPRIL AND CRESTOR. EF AT 31 %. ALL DISCHARGWE CRITERIA POST DC HAS BEEN MET.
[2016-10-21 12:00] VITALS: BP 104/77
--- NOTE | 2016-10-21 14:18 | NUR ---
D/C PAPERWORKED EXPLAINED AND SIGNED AND PLACED IN CHART. IV REMOVED WITH CATH TIP INTACT. TOLERATED WELL.
--- NOTE | 2016-10-21 14:30 | NUR ---
PT D/C TO HOME VIA WHEELCHAIR.
--- NOTE | 2016-10-29 15:45 | OP ---
PATIENT NAME: MOON HOWARD MEDICAL RECORD: [id number] :41 LOCATION:D. D.2103 ADMISSION DATE:10/16/16 SURGEON: BONG GILBERT M.D. DATE OF OPERATION: 10/17/2016 Catheterization Report PROCEDURES PERFORMED: 1. Selective coronary angiography. 2. PTCA and stent placed to the circumflex. INDICATION: A 71-year-old presents with non-Q-wave myocardial infarction and persistent chest pain. EQUIPMENT USED: Diagnostic 5-Greenlandic JL4, Lawson right. INTERVENTION: A 6-Greenlandic XB 3.5 guide, Whisper guidewire, 2.0 x 15 mm [place] balloon, 2.75 x 18 mm Integrity stent, 2.5 x 14 mm Integrity stent. TECHNIQUE: A 6-Greenlandic sheath was inserted in retrograde fashion in the left common femoral artery. Next, selective coronary angiography was performed in standard views using 5-Greenlandic JL4 and Lawson right. Left heart catheterization was not performed. CORONARY ANATOMY: 1. Left main: Left main trunk is moderate in caliber. It gives rise to the LAD and circumflex. It is widely patent. 2. LAD: This vessel is moderate in caliber. The proximal vessel has been stented. The stent is widely patent. There is no evidence of any thrombus or subacute stent thrombosis. 3. Circumflex: This vessel is moderate in caliber. It appears to be subtotalled proximal vessel, there appears to be slow flow through the proximal mid segment. 4. Right coronary: This vessel is moderate in caliber and dominant. The proximal vessel has been stented. The stents are widely patent without evidence of thrombosis. DESCRIPTION OF INTERVENTION: A 100 units per kilogram of heparin was infused. A 6-Greenlandic XB 3.5 guide was advanced and engaged in the left main coronary artery. Next, a Whisper guidewire was directed through the occlusion and placed into the distal circumflex. The proximal vessel was predilated with a 2.0 x 15 mm [place] balloon at 12 atmospheres. Injection revealed jain of flow. There appeared to be a lesion in the mid segment of at least 80%. This was stented with a 2.75 x 18 mm Integrity stent at 10 atmospheres. Next, a 2.5 x 14 mm Integrity stent was placed just beyond the origin of the circumflex and deployed at 13 atmospheres. Injection reveals stent to be widely patent with 0% residual stenosis. There is marked improvement in distal flow. At this point, the wire and guide were removed. IMPRESSION: Successful percutaneous transluminal coronary angioplasty and stenting to the circumflex with 0% residual stenosis. TRANSINT:[id number] Voice Confirmation ID: [id number] DOCUMENT ID: [id number] OPERATIVE REPORT [id number] MOON HOWARD,BONG Coleman M.D. at 1545 CC: [id number] DICTATION DATE: 10/17/16 1605 INSPECTOR TYPE: 10/17/16 1616 DIS IN 10/21/16 [facility] [address] [place] [address]
== END 2016-10-21 14:30 | disposition home or self-care (01) | DRG 249 ==
LOC: D.ER 13:06 → D.ICU 16:11 → D.M2 16:11
PROVIDERS: Emergency Medicine; ADMIT Internal Medicine Cardiovascular Disease
PROC: 02703DZ Dilation of Coronary Artery, One Artery with Intraluminal Device, Percutaneous Approach (ICD-10-PCS; principal; 2016-10-17 14:00)
DX: I22.2 Subsequent non-ST elevation (NSTEMI) myocardial infarction (principal); D62 Acute posthemorrhagic anemia; I21.4 Non-ST elevation (NSTEMI) myocardial infarction; I25.110 Atherosclerotic heart disease of native coronary artery with unstable angina pectoris

== ENCOUNTER → 2017-06-28 07:34 | Outpatient (CLI) | payer MEDICARE ==
[2016-10-17 09:01] VITALS: BMI 26.3
== END | disposition home or self-care (01) ==
LOC: D.LAB 07:34
DX: E11.9 Type 2 diabetes mellitus without complications (principal)

== ENCOUNTER → 2017-10-28 07:28 | Outpatient (CLI) | payer MEDICARE ==
[2016-10-17 09:01] VITALS: BMI 26.3
[2017-10-28 08:02] LABS: BASOPHILS 0.4 % (0-2); EOSINOPHILS 2.7 % (0-7); HEMATOCRIT 38.6 % (36.0-48.0); HEMOGLOBIN 12.6 g/dL (12-16); IMMATURE GRANULOCYTES 0.4 % (0-5); LYMPHOCYTES 31.3 % (15-50); MCH 30.6 pg (26.0-34.0); MCHC 32.6 g/dL (31.0-37.0); MCV 93.7 fL (80.0-100.0); MEAN PLATELET VOLUME 8.4 fL (7.4-10.4); MONOCYTES 8.1 % (2-11); NEUTROPHILS 57.1 % (40-80); RBC 4.12 10x6/uL (4.00-5.40); RDW 12.8 % (11.5-14.5); WBC 7.8 10x3/uL (4.8-10.8)
[2017-10-28 08:12] LABS: HEMOGLOBIN A1C 5.8 % (4.8-6.0)
[2017-10-28 08:13] LABS: ALBUMIN 3.9 g/dL (3.4-5.0); ANION GAP 11.7 mmol/L (8-16); BILIRUBIN - TOTAL 0.4 mg/dL (0.2-1.3); CALCIUM 9.6 mg/dL (8.5-10.1); CHOL - HDL RATIO 2.3 ratio (2.3-4.1); CREATININE - SERUM 0.9 mg/dL (0.6-1.3); LDL-HDL RATIO 0.9 ratio (1.5-3.5); POTASSIUM - SERUM 3.7 mmol/L (3.5-5.1); PROTEIN - SERUM 7.2 g/dL (6.4-8.2)
[2017-10-28 08:17] LABS: PLATELET COUNT 226 10x3/uL (130-400)
== END | disposition home or self-care (01) ==
LOC: D.LAB 07:28
PROVIDERS: Family Medicine
DX: Z00.00 Encounter for general adult medical examination without abnormal findings (principal); E23.0 Hypopituitarism; E11.9 Type 2 diabetes mellitus without complications; I25.10 Atherosclerotic heart disease of native coronary artery without angina pectoris; E78.5 Hyperlipidemia, unspecified

== ENCOUNTER → 2018-09-12 09:17 | Outpatient (CLI) | payer MEDICARE ==
[2016-10-17 09:01] VITALS: BMI 26.3
[2018-09-12 11:01] LABS: APPEARANCE CLEAR (CLEAR); BACTERIA FEW /hpf (NONE SEEN); BILIRUBIN NEGATIVE (NEGATIVE); COLOR YELLOW (YELLOW); EPITHELIAL CELLS 0-5 /hpf (0-5); GLUCOSE NEGATIVE (NEGATIVE); KETONE NEGATIVE (NEGATIVE); NITRITE NEGATIVE (NEGATIVE); PROTEIN NEGATIVE (NEGATIVE); RED CELLS - URINE RARE /hpf (0-5); SPECIFIC GRAVITY 1.005 (1.005-1.020); UROBILINOGEN NORMAL (NORMAL); WHITE CELLS - URINE 0-5 /hpf (0-5)
[2018-09-12 11:02] LABS: YEAST <1+ /hpf (NONE SEEN)
== END | disposition home or self-care (01) ==
LOC: D.LAB 09:17
PROVIDERS: Family Medicine
DX: R10.9 Unspecified abdominal pain (principal); R39.15 Urgency of urination

== ENCOUNTER 2018-10-29 19:14 | Inpatient (IN) | payer MEDICARE ==
[~2018-10-29] VITALS: Ht 152.4 cm; Wt 57.6 kg
[2018-10-29] MEDS ORDERED: OMEGA-3100 MG PO (19:35)
[2018-10-29] MEDS ORDERED: VITAMIN B-121000 MCG (19:35)
--- NOTE | 2018-10-29 20:09 | NUR ---
PT GONE TO CT AT THIS TIME. SPOUSE IN ROOM.
--- NOTE | 2018-10-29 21:36 | NUR ---
PT STABLE, CALL LIGHT WITHIN REACH, DENIES NEEDS, WILL CONTINUE TO MONITOR.
--- NOTE | 2018-10-29 23:05 | NUR ---
PT STABLE, CALL LIGHT WITHIN REACH, NEW SOFT SMALL C-COLLAR IN PLACE. BLANKET PROVIDED. SPOUSE AT BEDSIDE, CALLLIGHT WITHIN REACH, WILL CONTINUE TO MONITOR.
[2018-10-30] VITALS (7 sets, daily range): BP systolic 105–167; BP diastolic 68–93; Ht 152.4 cm; Wt 57.6 kg
--- NOTE | 2018-10-30 00:10 | NUR ---
PT REPORT CALLED TO WINDY, NURSE ROOM 2210. PT STABLE AT TRANSPORT.
--- NOTE | 2018-10-30 00:30 | NUR ---
PT ARRIVED TO FLOOR VIA WC. ALERT AND ORIENTED. AT BEDSIDE. PT ABLE TO STAND AND TRANSFER TO BED. C-COLLAR IN PLACE. LEFT EYE SWOLLEN SHUT AND BRUISED. BRUISING AND ABRASIONS TO BOTH KNEES. RIGHT HAND RING FINER SWOLLEN AND BRUISED. PT STATES NO PAIN AT THIS TIME. INFORMED PT SHE WOULD BE NPO AFTER MN, VERBALIZED UNDERSTANDING. IV RIGHT AC INFUSING NS @ 100. SCDS IN PLACE. BREATHING EVEN, UNLABORED. LUNGS CTA. BOWEL SOUNDS ACTIVE. NO OTHER NEEDS OR COMPLAINTS AT THIS TIME. CL IN REACH, WILL CONTINUE TO MONITOR
[2018-10-30 06:21] LABS: INR 0.91 (0.85-1.17); PROTIME 11.7 SECONDS (11.6-15.0)
[2018-10-30 06:41] LABS: ANION GAP 16.5 mmol/L (8-16); CALCIUM 8.7 mg/dL (8.5-10.1); CARBON DIOXIDE 25.1 mmol/L (21.0-32.0); CREATININE - SERUM 0.8 mg/dL (0.6-1.3); POTASSIUM - SERUM 3.6 mmol/L (3.5-5.1)
[2018-10-30 08:40] LABS: BASOPHILS 0.2 % (0-2); EOSINOPHILS 0.6 % (0-7); IMMATURE GRANULOCYTES 0.2 % (0-5); LYMPHOCYTES 14.7 % (15-50); MCH 31.3 pg (26.0-34.0); MCHC 33.3 g/dL (31.0-37.0); MCV 93.8 fL (80.0-100.0); MEAN PLATELET VOLUME 8.8 fL (7.4-10.4); MONOCYTES 9.8 % (2-11); NEUTROPHILS 74.5 % (40-80); PLATELET COUNT 193 10x3/uL (130-400); RBC 4.16 10x6/uL (4.00-5.40); RDW 12.8 % (11.5-14.5); WBC 8.9 10x3/uL (4.8-10.8)
--- NOTE | 2018-10-30 09:38 | NUR ---
performance makeup artist note-resting quietly on right side with c collar in place. resp even and unlabored with eyes closed. bruising noted to left eye and swollen. call light in reach. will continue to monitor
--- NOTE | 2018-10-30 22:30 | NUR ---
RECEIVED PT FROM FLOOR VIA BED. PT WAS TRANSFERRED TO ICU DUE TO LACK OF RESPONSIVENESS. WHEN I STATED PT'S NAME SHE RESPONDED WITH A YES. MOST QUESTIONS WENT UNANSWERED BUT PT WAS MOVING UPPER EXTREMITIES AROUND IN BED. PT WAS ATTACHED TO MONITORS, SHOWING A HR IN THE 140'S AT THIS TIME. PT DID OPEN EYES ONCE, LEFT EYE DID NOT OPEN DUE TO THE SWELLING RIGHT EYE ONLY PARTIALLY OPENED. LUNGS SOUNDS- CRACKLES BOTH LOBES. DR CURRIE AT BEDSIDE. ORDERS RECEIVED FOR TEMP OF 103.0. NO OTHER CHANGES NOTED AT THIS TIME. WILL CONTINUE TO MONITOR.
--- NOTE | 2018-10-30 23:30 | NUR ---
PT CLIMBED OUT OF BED AND USED THE BATHROOM ON THE CHAIR NEXT TO HER BED. BED ALARM WAS ON AND WORKING. PT WAS CLEANED UP AND PUT BACK TO BED. NO SIGNS OF ACUTE DISTRESS. WILL CONTINUE TO MONITOR.
[2018-10-31] VITALS (12 sets, daily range): BP systolic 89–133; BP diastolic 33–76
--- NOTE | 2018-10-31 01:26 | NUR ---
PT RESTING IN BED WITH EYES CLOSED. NO SIGNS OF ACUTE DISTRESS. NO ACUTE CHANGES NOTED. WILL CONTINUE TO MONITOR.
--- NOTE | 2018-10-31 03:26 | NUR ---
REASSESSMENT COMPLETED, SEE FLOWSHEET. PT USED CALL LIGHT FOR ASSISTANCE TO THE BATHROOM. UPON ENTERING PT ROOM IT WAS NOTED THAT PT WAS INCONTINENT OF STOOL IN BED. BEDSIDE COMMODE PROVIDED AND PT HAD A LARGE FORMED BOWEL MOVEMENT. NO OTHER CHANGES NOTED. NO SIGNS OF ACUTE DISTRESS. WILL CONTINUE TO MONITOR.
[2018-10-31 04:18] LABS: ALBUMIN 2.8 g/dL (3.4-5.0); ANION GAP 16.8 mmol/L (8-16); BILIRUBIN - TOTAL 0.88 mg/dL (0.2-1.3); CALCIUM 8.2 mg/dL (8.5-10.1); CARBON DIOXIDE 21.3 mmol/L (21.0-32.0); POTASSIUM - SERUM 3.1 mmol/L (3.5-5.1); PROTEIN - SERUM 6.3 g/dL (6.4-8.2)
[2018-10-31 04:21] LABS: CREATININE - SERUM 1.1 mg/dL (0.6-1.3)
--- NOTE | 2018-10-31 07:30 | NUR ---
SHIFT REPORT RECEIVED. PT APPEARS ASLEEP. AROUSES TO VOICE. A&O TO PERSON, PLACE AND SITUATION. DENIES HAVING PAIN. SHE REPORTS SLIGHT DISCOMFORT ON HER NECK WHEN SHE IS MOVIGN AROUND. SHE HAS C-COLLAR ON. HAS PIV ON L-FOREARM 20G PIV. HEMATOMA AND BRUISING NOTED ON FACE. BRUISING AND SCABS NOTED ON LOWER EXTREMITIES. ON ROOM AIR. HR TACHYCARDIC. SHIFT ASSESSMENT COMPLETED. CALL LIGHT IN PLACE. BED ALARM ON. SIDE RAILS UP X 2. WILL CONTINUE TO MONITOR.
--- NOTE | 2018-10-31 09:40 | NUR ---
INCONTINEN EPISODE OF STOOL AT THIS TIME. BATH GIVEN. COMPLETE LINEN CHANGE PROVIDED. PULLED UP AND REPOSITIONED FOR COMFORT. AM MEDS GIVEN WITH NO DIFFICULTIES NOTED. SPOUSE AT BEDSIDE. WILL CONTINUE TO MONITOR.
--- NOTE | 2018-10-31 10:00 | NUR ---
UPDATE CALLED TO ARMAAN GARRISON TO TRANSFER PT TO FLOOR
[2018-10-31 10:23] LABS: BASOPHILS 0.4 % (0-2); EOSINOPHILS 0.6 % (0-7); HEMATOCRIT 40.8 % (36.0-48.0); HEMOGLOBIN 13.3 g/dL (12-16); IMMATURE GRANULOCYTES 0.4 % (0-5); LYMPHOCYTES 26.7 % (15-50); MCHC 32.6 g/dL (31.0-37.0); MCV 95.1 fL (80.0-100.0); MEAN PLATELET VOLUME 9.3 fL (7.4-10.4); MONOCYTES 14.6 % (2-11); NEUTROPHILS 57.3 % (40-80); PLATELET COUNT 183 10x3/uL (130-400); RBC 4.29 10x6/uL (4.00-5.40); RDW 13.1 % (11.5-14.5); WBC 11.1 10x3/uL (4.8-10.8)
--- NOTE | 2018-10-31 10:33 | NUR ---
INCONTINENT EPISODE OF DIARRHEA AT THIS TIME. PERCARE PROVIDED. PARTIAL LINEN CHANGE PROVIDED. UA COLLECTED VIA IN AND OUT CATH. STERILE TECHNIQUE USED PER PROTOCOL.
[2018-10-31 10:41] LABS: APPEARANCE HAZY (CLEAR); BILIRUBIN NEGATIVE (NEGATIVE); COLOR YELLOW (YELLOW); GLUCOSE NEGATIVE (NEGATIVE); KETONE SMALL mg/dL (NEGATIVE); NITRITE NEGATIVE (NEGATIVE); PH 5.5 (5.0-6.0); PROTEIN TRACE mg/dL (NEGATIVE); UROBILINOGEN NORMAL (NORMAL)
[2018-10-31 10:53] LABS: BACTERIA MODERATE /hpf (NONE SEEN); EPITHELIAL CELLS OCC /hpf (0-5); MUCUS <1+ /lpf (NONE SEEN); RED CELLS - URINE 0-5 /hpf (0-5); WHITE CELLS - URINE 0-5 /hpf (0-5); YEAST >1+ /hpf (NONE SEEN)
--- NOTE | 2018-10-31 12:19 | NUR ---
ASSISTED PT TO BEDSIDE COMMODE. TRANSFERS WELL. SMALL AMOUNT OF BROWN LOOSE STOOL NOTED. PERICARE PROVIDED. DID NOT EAT LUNCH. ONLY TOOK A FEW BITES OF FOOD. FAMILY AT BEDSIDE. WILL CONTINUE TO MONITOR.
--- NOTE | 2018-10-31 13:56 | NUR ---
USED BEDSIDE COMMODE AT THIS TIME. VOIDED ABOUT 150ML OR YELLOW URINE. NO STOOL NOTED AT THIS TIME. PT WANTING TO TAKE C-COLLAR OFF. TEACHING PROVIDED REGARDING NEED FOR C-COLLAR DUE TO FRACTURE. FAMILY MEMBER AT BEDSIDE. NO FURTHER NEEDS. WILL CONTINUE TO MONITOR.
--- NOTE | 2018-10-31 14:33 | NUR ---
PULLED UP IN BED AND REPOSITIONED FOR COMFORT. ICE WATER PROVIDED. NO FURTHER NEEDS. WILL CONTINUE TO MONITOR.
--- NOTE | 2018-10-31 15:33 | NUR ---
INCONTINENT EPISODE OF STOOL AT THIS TIME. SMALL AMOUNT OF LIQUID BROWN STOOL. PT STATED SHE NEEDED TO VOID. ASSISTED ON TO BEDSIDE COMMODE. SMALL AMOUNT OF BROWN LOOSE STOOL NOTED. VOIDED ABOUT 50ML. REPOSTIONED IN BED. NO FURTHER NEEDS. WILL CONTINUE MONITOR.
--- NOTE | 2018-10-31 15:54 | NUR ---
PT WILL BE TRANSFERRED TO ROOM 2233. REPORT HAS BEEN CALLED TO RECEIVING NURSE. THE ROOM IS NOT CLEAN AT THIS TIME. NURSE WILL CALL WHEN ROOM IS READY.
--- NOTE | 2018-10-31 16:38 | NUR ---
PT TRANSFERRED TO ROOM 2233 VIA WHEEL CHAIR. THERE WERE NO PERSONAL BELONGINGS IN ROOM. PT STATES THAT SHE HAS GLASSES ON HER BEDSIDE TABLE. GLASSES HAVE NOT BEEN SEEN ALL DAY TODAY. CHECKED BEDSIDE TABLE DRAWER. NO GLASSES FOUND. NOT SURE IF PT HAD GLASSES IN THIS UNIT. SPOUSE HAS BEEN NOTIFIED THAT PT WAS TRANSFERRED TO A DIFFERENT ROOM. CHART WAS DELIVERED TO GRANTS ASSISTANT. DIESEL ENGINE MECHANIC APPRENTICE IN ROOM WITH PATIENT WHEN ICU NURSE LEFT THE ROOM. FAMILY MEMBER AT BEDSIDE WITH PATIENT.
--- NOTE | 2018-10-31 16:45 | NUR ---
CALLED MR HOWARD TO SEE IF HE TOOK PT'S GLASSES. HE STATED THAT HE HAS THEM.
--- NOTE | 2018-10-31 18:09 | NUR ---
patient transferred from icu to room 2233 via bed with family at bedside. skin w/d to touch, resp. regular and even at 18. cervical collar intact to neck. iv normal saline infusing at 100 via left forearm. denies any c/o pain or discomfort when asked. c/l within reach and sr's up x's 2.
--- NOTE | 2018-10-31 19:10 | NUR ---
THE PATIENT WAS TALKING TOHER WHEN STAFF ENTERED HER AREA. BED IN LOW POSITION WITH SIDERAILS X2 AND CALL LIGHT WITHIN REACH. PATIENT DEMONSTRATES USE OF A CALL LIGHT. THE PATIENT APPEARS COMFORTABLE WITH NO QUESTIONS OR COMPLAINTS AT THIS TIME.
[2018-11-01] VITALS: BP 125/61
--- NOTE | 2018-11-01 01:46 | NUR ---
THE PATIENT APPEARS TO BE SLEEPING COMFORTABLY.
[2018-11-01 03:00] VITALS: BP 120/53
[2018-11-01 08:00] VITALS: BP 154/74
[2018-11-01 09:11] LABS: BASOPHILS 0.4 % (0-2); EOSINOPHILS 2.1 % (0-7); HEMOGLOBIN 12.1 g/dL (12-16); IMMATURE GRANULOCYTES 0.1 % (0-5); LYMPHOCYTES 26.5 % (15-50); MCHC 33.6 g/dL (31.0-37.0); MEAN PLATELET VOLUME 8.4 fL (7.4-10.4); MONOCYTES 10.3 % (2-11); NEUTROPHILS 60.6 % (40-80); PLATELET COUNT 147 10x3/uL (130-400); RDW 12.9 % (11.5-14.5)
[2018-11-01 09:24] LABS: ANION GAP 16.9 mmol/L (8-16); CALCIUM 8.6 mg/dL (8.5-10.1); CARBON DIOXIDE 19.8 mmol/L (21.0-32.0)
[2018-11-01 09:27] LABS: CREATININE - SERUM 0.8 mg/dL (0.6-1.3); POTASSIUM - SERUM 3.7 mmol/L (3.5-5.1)
[2018-11-01 09:28] LABS: MCV 92.3 fL (80.0-100.0); WBC 7.7 10x3/uL (4.8-10.8)
[2018-11-01 12:00] VITALS: BP 136/88
[2018-11-01 16:00] VITALS: BP 122/65
[2018-11-01 19:00] VITALS: BP 140/74
--- NOTE | 2018-11-01 19:20 | NUR ---
RECEIVED REPORT, ASSUMED CARE, AT BEDSIDE, REQUEST ROBITUSSIN COUGH SYRUP, DR JULIETH MENCHACA, CALL LIGHT IN REACH, BED LOWEST POSITION, ASSESSMENT COMPLETE, NO S/S OF DISTRESS NOTED, WILL CONTINUE POC
--- NOTE | 2018-11-01 19:30 | NUR ---
RECEIVED FROM SURGERY, PT URINATED, DENIES NEEDS, DRINKING WATER AT THIS TIME, WILL CONTINUE TO MONITOR
[2018-11-02] VITALS: BP 135/71
--- NOTE | 2018-11-02 00:09 | NUR ---
Patient in bed awake with TV on no /s of distress. Neack brace in place, call light in reach, will contiue with paline of care.
[2018-11-02 03:00] VITALS: BP 130/58
--- NOTE | 2018-11-02 08:37 | NUR ---
PT STANDING UP AT SINK. PUT BED ALARM ON. CHANGED PAD. EDUCATED PT TO USE CALL LIGHT. PT "UNDERSTANDS". NO S/S OF ACUTE DISTRESS. BROUGHT PT COFFEE. CL IN PLACE.
[2018-11-02 08:48] VITALS: BP 125/79
[2018-11-02 12:00] VITALS: BP 128/60
[2018-11-02 16:00] VITALS: BP 143/74
[2018-11-02 19:00] VITALS: BP 121/64
--- NOTE | 2018-11-02 19:02 | NUR ---
PT RESTING IN BED. CO OF MENDOZA. CHANGED ROUTE ON TYLENOL ORDER. NO S/S OF ACUTE DISTRESS. CL IN PLACE.
--- NOTE | 2018-11-02 19:25 | NUR ---
RECEIVED REPORT, ASSUMED CARE, AT BEDSIDE, BED ALARM ON, SOFT COLLAR ON, BED LOWEST POSITION, CALL LIGHT IN REACH, DENIES NEEDS, WILL CONTINUE POC
--- NOTE | 2018-11-02 22:42 | NUR ---
PATIENT IN BED ASLEEP ON RIGHT SIDE PILLOW BETWEEN KNEES. RESPRATIONS EVEN AND UNLABORED NO S/S OF DISTRESS CALL LIGHT IN REACH.
[2018-11-03] VITALS: BP 118/57
[2018-11-03 03:00] VITALS: BP 120/61
[2018-11-03 09:00] VITALS: BP 146/77
[2018-11-03 13:34] VITALS: BP 100/59
--- NOTE | 2018-11-03 14:21 | NUR ---
NUTRITION F//U REG DIET. GOOD INTAKE BREAKFAST. WILL CONTINUE TO PROVIDE DIET, HONOR FOOD PREFERENCES, MONITOR PO INTAKE. RD FOLLOWING
--- NOTE | 2018-11-03 20:00 | NUR ---
ALERT UP AMBULATING IN ROOM DENIES PAIN,SOFT C COLLAR IN USE, AT BEDSIDE CALL LIGHT IN REACH
[2018-11-03 21:13] VITALS: BP 128/74
[2018-11-04 01:32] VITALS: BP 124/70
[2018-11-04 05:23] VITALS: BP 144/78
[2018-11-04 08:07] VITALS: BP 132/77
--- NOTE | 2018-11-04 08:39 | NUR ---
Rehab Note- Acute Inpatient prescreen order received. The halle has [facility] insurance and will require a PreAuth prior to an [facility]. She has a pending OT Eval that will be needed for the PreAuth process. WIll begin the PreAuth process. Thank you for this referral! Jelly Sunshine RN Clinical Liaison, [facility] Rehab
--- NOTE | 2018-11-04 09:54 | MORECARE ---
CASE MANAGEMENT DISCHARGE SUMMARY PATIENT: MOON HOWARD UNIT: [id number] ADM DATE: 10/29/18 AGE: 73 : 43 SEX: F ROOM/BED: D.[facility]3 AUTHOR: ISAK CAMPOS PHYSICIAN: REFERRING PHYSICIAN: MARTY MELTON MD DATE OF SERVICE: 11/04/18 Discharge Plan Patient Name: MOON HOWARD [facility] [facility] 1945 Planned Disposition: Home Anticipated Discharge Date: Discharge Date: Expected LOS: Initial Reviewer: [email or web address] Initial Review Date: 11/04/2018 Generated: 11/04/18 10:54 am DCPIA - Discharge Planning Initial Assessment Updated by [email or web address]: Neetu Edward on 11/04/18 9:53 am * Is the patient Alert and Oriented? Yes * How many steps to enter\exit or inside your home? 4/0 * PCP Dr. Melton * Pharmacy [facility] on [facility] for immediate meds Mail order for [facility] meds * Preadmission Environment Home with Family * ADLs Independent * Equipment Cane Walker * List name and contact numbers for known caregivers / representatives who currently or will assist patient after discharge: Rico Howard - [facility] - [phone] * Verbal permission to speak to the caregivers and representatives has been obtained from the patient. Yes * Community resources currently utilized None * Additional services required to return to the preadmission environment? No * Can the patient safely return to the preadmission environment? Yes * Has this patient been hospitalized within the prior 30 days at any hospital? No Patient Name: MOON HOWARD Page [id number] at 0954 All edits/amendments must be made on the electronic document DICTATION DATE: 11/04/18952 HARDBOARD PRESS OPERATOR: CARLOZ 11/04/18952 RPT#: [id number] DC DATE: STATUS: ADM IN [facility] [address] [place] [address] END OF REPORT
--- NOTE | 2018-11-04 10:01 | MORECARE ---
CASE MANAGEMENT DISCHARGE SUMMARY PATIENT: MOON HOWARD UNIT: [id number] ADM DATE: 10/29/18 AGE: 73 : 43 SEX: F ROOM/BED: D.2233 AUTHOR: ANDRES,DOC PHYSICIAN: REFERRING PHYSICIAN: MARTY MELTON MD DATE OF SERVICE: 11/04/18 Discharge Plan Patient Name: MOON HOWARD Facility: [facility]:[place] : 1945 Planned Disposition: Home Anticipated Discharge Date: Discharge Date: Expected LOS: Initial Reviewer: [email or web address] Initial Review Date: 11/04/2018 Generated: 11/04/18 11:01 am Comments DCP- Discharge Planning Updated by [email or web address]: Neetu Edward on 11/04/18 8:[address] Patient Name: MOON HOWARD Admission Status: ER Accout number: [id number] Admission Date: 10-29-2018 : 1945 Admission Diagnosis:UNSP DISP FX OF SECOND CERVICAL VERTEBRA, INIT FOR CLOS Attending: MARTY MELTON Current LOS: 6 Anticipated DC Date: Planned Disposition: Home Primary Insurance: [facility] MEDICARE SOLUTIONS Discharge Planning Comments: CM met with patient and to discuss discharge planning. She lives with her . She is independent with all ADL's. States she has a cane and walker, but does not use them. She does not have any community resources assisting in the home. I discussed the availability of inpatient rehab, SNF and home health. states the plan is to return home with him. Declines need for home health. States "she is very independent." CM will continue to follow and assist with discharge planning/needs. Credit Department Manager: Neetu Edward DCPIA - Discharge Planning Initial Assessment Updated by [email or web address]: Neetu Edward on 11/04/18 9:53 am * Is the patient Alert and Oriented? Yes * How many steps to enter\\exit or inside your home? 4/0 * PCP Dr. Melton * [facility] [address] for immediate meds Mail order for [facility] meds * Preadmission Environment Home with Family * ADLs Independent * Equipment Cane Walker * List name and contact numbers for known caregivers / representatives who currently or will assist patient after discharge: Rico Howard - [facility] - [phone] * Verbal permission to speak to the caregivers and representatives has been obtained from the patient. Yes * Community resources currently utilized None * Additional services required to return to the preadmission environment? No * Can the patient safely return to the preadmission environment? Yes * Has this patient been hospitalized within the prior 30 days at any hospital? No Last DP export: 11/04/18 8:54 a Patient Name: MOON HOWARD Page [id number] at 1001 All edits/amendments must be made on the electronic document DICTATION DATE: 11/04/18 1001 SHELL MOLDER: CARLOZ 11/04/18 1001 RPT#: [id number] DC DATE: STATUS: ADM IN [facility] [address] [place] [address] END OF REPORT
[2018-11-04 12:39] VITALS: BP 136/71
[2018-11-04 16:06] VITALS: BP 128/75
--- NOTE | 2018-11-04 16:11 | NUR ---
Rehab Note- Spoke with Juanita with [facility] and Sami started, awaiting for clinical request. WIll follow at this time. Thank you for this referral! Jelly Sunshine RN Clinical Liaison, [facility] Rehab
--- NOTE | 2018-11-04 18:03 | NUR ---
EMPLOYMENT INSTRUCTIONAL ASSOCIATE NOTE= DENIES ANY PAIN. BRUISING TO EYES AND FOREHEAD. UP AD SALLY. SITTING ON THE SIDE OF THE BED. NO FURTHER NEEDS AT THIS TIME.
--- NOTE | 2018-11-04 19:10 | NUR ---
MEDICATED WITH APAP 650 MG FOR HEADACHE RATING 7/10 ON PAIN SCALE. C/L IN REACH
--- NOTE | 2018-11-04 19:10 | NUR ---
INITAIL VEIW OF PT ..SITTING UP IN BED SR X1 ALERT AND ORIENTED X3 HEMATOMA NOTED TO JUST ABOVE LEFT EYE WITH SCLERA AFFECTED WITH BLOOD NOTED WITH NO ACTIVE BLEED...PUPIL IS UNEFFECTED PT REPORTS NPO CHANGE IN VISION BOTH PUPILS EQUAL AND REACTIVE TO LIGHT TYLENAOL WAS JUST GIVEN BY DEPARTING NURSE RANKS PAIN WITH ME "LOW..NOT" REFUSES TO PUT A NUMBER ON IT LUNGS CLEAR BILAT BOWEL SOUNDS X4 IV IN LEFT LILIAN ...NOTED CATHETER WAS OUT INTACT AND EXPOSED. REMOVED IV SITE HAS NO ACTIVE BLEEDING NO PAIN PER PT SO BANDAID APPLIED...BED LOW AND CALL LIGHT IS IN REACH. PT STATES I DO NOT WANT THE IV RERSTARTED
[2018-11-04 21:23] VITALS: BP 115/58
--- NOTE | 2018-11-04 22:01 | NUR ---
PT REFUSED FLOWNASE ADIMENT THAT SHE HAS HAD IT TODAY ...I EXPLAINED ITS ORDERED TWICE BUT CONTINUES TO REFUSE....PT REFUSES REQUIP STATING NO I NEED TO DO WITH OUT THAT ONE I ATTEMPTED TO EDUCATE BUT PT CONTINUES TO REFUSE BOTH MEDS NOT GIVEN
--- NOTE | 2018-11-04 22:09 | NUR ---
OT NOTE: PT COMPLETED ADL MOB WITH CGA. PT COMPLETED EOB SITTING WITH SBA. THANK YOU, KAT VELA
--- NOTE | 2018-11-04 22:59 | NUR ---
AT REST WITH EYES CLOSED SRX2 AND BED LOW CALL LIGHT IS IN REACH
--- NOTE | 2018-11-05 03:26 | NUR ---
RESTING QUITELY IN BED NO APPARENT DISTRESS CALL KAE RIOS
--- NOTE | 2018-11-05 04:32 | NUR ---
RESTED WELL THIS SHIFT WITH NO COMPLAINTS OR NEEDS
[2018-11-05 04:34] VITALS: BP 142/88
--- NOTE | 2018-11-05 07:20 | NUR ---
PT RESTING IN BED, EYES CLOSED. RESPIRATIONS EVEN AND UNLABORED. AROUSES TO VOICE. BRUISING TO FACE, HEMATOMA TO LEFT SIDE OF FOREHEAD. PT ALERT AND ORIENTED. UP AD SALLY. REFUSED IV. NO C/O PAIN. NO S/S OF ACUTE DISTRESS NOTED. PT ADMITTED WITH FX TO C2-3. PT DENIES ANYTHING FURTHER AT THIS TIME. CALL LIGHT IN REACH. WILL CONTINUE TO MONITOR.
[2018-11-05 08:39] VITALS: BP 135/71
[2018-11-05] MEDS ORDERED: ALLEGRA D PO (12:13)
[2018-11-05] MEDS ORDERED: FLUTICASONE PRO16 GM NASAL (12:14)
--- NOTE | 2018-11-05 12:18 | MORECARE ---
CASE MANAGEMENT DISCHARGE SUMMARY PATIENT: MOON HOWARD UNIT: [id number] ADM DATE: 10/29/18 AGE: 73 : 43 SEX: F ROOM/BED: D.2233 AUTHOR: ANDRES,DOC PHYSICIAN: REFERRING PHYSICIAN: MARTY MELTON MD DATE OF SERVICE: 11/05/18 Discharge Plan Patient Name: MOON HOWARD Facility: [facility]:[place] : 1945 Planned Disposition: Home Anticipated Discharge Date: Discharge Date: Expected LOS: Initial Reviewer: [email or web address] Initial Review Date: 11/04/2018 Generated: 11/05/18 1:18 pm Comments DCP- Discharge Planning Updated by [email or web address]: Neetu Edward on 11/04/18 8:[address] Patient Name: MOON HOWARD Admission Status: ER Accout number: [id number] Admission Date: 10-29-2018 : 1945 Admission Diagnosis:UNSP DISP FX OF SECOND CERVICAL VERTEBRA, INIT FOR CLOS Attending: MARTY MELTON Current LOS: 6 Anticipated DC Date: Planned Disposition: Home Primary Insurance: [facility] MEDICARE SOLUTIONS Discharge Planning Comments: CM met with patient and to discuss discharge planning. She lives with her . She is independent with all ADL's. States she has a cane and walker, but does not use them. She does not have any community resources assisting in the home. I discussed the availability of inpatient rehab, SNF and home health. states the plan is to return home with him. Declines need for home health. States "she is very independent." CM will continue to follow and assist with discharge planning/needs. Orthotic Fitter: Neetu Edward DCPIA - Discharge Planning Initial Assessment Updated by [id number]: Neetu Edward on 11/04/18 9:53 am * Is the patient Alert and Oriented? Yes * How many steps to enter\\exit or inside your home? 4/0 * PCP Dr. Melton * [facility]acy [facility] [address] for immediate meds Mail order for half-way meds * Preadmission Environment Home with Family * ADLs Independent * Equipment Cane Walker * List name and contact numbers for known caregivers / representatives who currently or will assist patient after discharge: Rico Howard - [facility] - [phone] * Verbal permission to speak to the caregivers and representatives has been obtained from the patient. Yes * Community resources currently utilized None * Additional services required to return to the preadmission environment? No * Can the patient safely return to the preadmission environment? Yes * Has this patient been hospitalized within the prior 30 days at any hospital? No External Providers External Provider: [facility] Next Contact Date: Service Request Date: Service Type: Resolution: Reviewer: Comments: Last DP export: 11/04/18 9:01 a Patient Name: MOON HOWARD Page [id number] at 1218 All edits/amendments must be made on the electronic document DICTATION DATE: 11/05/188 SENIOR TALENT MANAGEMENT CONSULTANT: CARLOZ 11/05/18 1218 RPT#: [id number] DC DATE: STATUS: ADM IN [facility] [address] [place] [address] END OF REPORT
--- NOTE | 2018-11-05 12:30 | MORECARE ---
CASE MANAGEMENT DISCHARGE SUMMARY PATIENT: MOON HOWARD UNIT: [id number] ADM DATE: 10/29/18 AGE: 73 : 43 SEX: F ROOM/BED: D.2233 AUTHOR: ANDRES,DOC PHYSICIAN: REFERRING PHYSICIAN: MARTY MELTON MD DATE OF SERVICE: 11/05/18 Discharge Plan Patient Name: MOON HOWARD Facility: [facility]:[place] : 1945 Planned Disposition: Home Anticipated Discharge Date: Discharge Date: Expected LOS: Initial Reviewer: [email or web address] Initial Review Date: 11/04/2018 Generated: 11/05/18 1:30 pm Comments DCP- Discharge Planning Updated by [email or web address]: Neetu Edward on 11/05/18 11:[address] Patient ambulated 500 feet in [place] with PT, she is wanting to go home with home health. LATANYA for [facility] signed. I called [facility] [place] [facility] [place]. Dr. Melton called and notified of patient's wishes. I called [facility] in inpatient rehab and informed. Anticipate discharge home today with home health. aware and at bedside. CM will continue to follow and assist with discharge planning/needs. DCP- Discharge Planning Updated by [email or web address]: Neetu Edward on 11/04/18 8:[address] Patient Name: MOON HOWARD Admission Status: ER Accout number: [id number] Admission Date: 10-29-2018 : 1945 Admission Diagnosis:UNSP DISP FX OF SECOND CERVICAL VERTEBRA, INIT FOR CLOS Attending: MARTY MELTON Current LOS: 6 Anticipated DC Date: Planned Disposition: Home Primary Insurance: [facility] MEDICARE SOLUTIONS Discharge Planning Comments: CM met with patient and to discuss discharge planning. She lives with her . She is independent with all ADL's. States she has a cane and walker, but does not use them. She does not have any community resources assisting in the home. I discussed the availability of inpatient rehab, SNF and home health. states the plan is to return home with him. Declines need for home health. States "she is very independent." CM will continue to follow and assist with discharge planning/needs. Accounting Professor: Neetu Edward DCPIA - Discharge Planning Initial Assessment Updated by [email or web address]: Neetu Edward on 11/04/18 9:53 am * Is the patient Alert and Oriented? Yes * How many steps to enter\\exit or inside your home? 4/0 * PCP Dr. Melton * [facility] [address] for immediate meds Mail order for roasterman meds * Preadmission Environment Home with Family * ADLs Independent * Equipment Cane Walker * List name and contact numbers for known caregivers / representatives who currently or will assist patient after discharge: Rico Howard - [facility] - [phone] * Verbal permission to speak to the caregivers and representatives has been obtained from the patient. Yes * Community resources currently utilized None * Additional services required to return to the preadmission environment? No * Can the patient safely return to the preadmission environment? Yes * Has this patient been hospitalized within the prior 30 days at any hospital? No Last DP export: 11/05/18 11:18 a Patient Name: MOON HOWARD Page [id number] at 1230 All edits/amendments must be made on the electronic document DICTATION DATE: 11/05/18 1230 OCCUPATIONAL THER: CARLOZ 11/05/18 1230 RPT#: [id number] CO DATE: STATUS: ADM IN [facility] [address] [place] [address] END OF REPORT
[2018-11-05 13:17] VITALS: BP 130/66
--- NOTE | 2018-11-05 15:29 | NUR ---
OT NOTE: ABLE TO ASHLEY GOWN WITH SET UP; DOFF AND ASHLEY SOCKS WITH SET UP; TRANSFERS WITH SBA; AMB IN ROOM WITH SBA. MET WITH CM TO DISCUSS DC. RECOMMEND HOME HEALTH SERVICES. PT DID NOT USE RW ENROLLMENT MANAGER, HOWEVER, SUGGESTED TO PT THAT SHE USE IT FOR A WHILE DUE TO OCCASSIONAL UNSTEADINESS. HOME HEALTH WOULD BE ABLE TO EVALUATE SAFETY AWARNESS ISSUES WITHIN THE HOME AND DECIDE WHETHER PT WOULD REQUIRE ANY FURTHER ADAP DEVICES. MOE SEARS, OTR/L
--- NOTE | 2018-11-05 15:41 | NUR ---
PT DISCHARGED HOME WITH FAMILY VIA WHEELCHAIR. NO C/O PAIN. NO S/S OF ACUTE DISTRESS NOTED. WENT OVER DISCHARGE INSTRUCTIONS WITH PT, PT ACKNOWLEDGED INSTRUCTIONS. PT DENIES ANY CONCERNS AT THIS TIME.
--- NOTE | 2018-11-11 07:03 | MORECARE ---
CASE MANAGEMENT DISCHARGE SUMMARY PATIENT: MOON HOWARD UNIT: [id number] ADM DATE: 10/29/18 AGE: 73 : 43 SEX: F ROOM/BED: D.2233 AUTHOR: ANDRES,DOC PHYSICIAN: REFERRING PHYSICIAN: MARTY MELTON MD DATE OF SERVICE: 11/11/18 Discharge Plan Patient Name: MOON HOWARD Facility: [facility]:[place] : 1945 Planned Disposition: Home Anticipated Discharge Date: Discharge Date: 11/05/2018 Expected LOS: 0 Initial Reviewer: [email or web address] Initial Review Date: 11/04/2018 Generated: 11/11/18 8:03 am Comments DCP- Discharge Planning Updated by [email or web address]: Neetu Edward on 11/05/18 11:[address] Patient ambulated 500 feet in [place] with PT, she is wanting to go home with home health. LATANYA for [facility] signed. I called [facility] and spoke to [facility] and clinical faxed. Dr. Melton called and notified of patient's wishes. I called [facility] in inpatient rehab and informed. Anticipate discharge home today with home health. aware and at bedside. CM will continue to follow and assist with discharge planning/needs. DCP- Discharge Planning Updated by [email or web address]: Neetu Edward on 11/04/18 8:[address] Patient Name: MOON HOWARD Admission Status: ER Accout number: [id number] Admission Date: 10-29-2018 : 1945 Admission Diagnosis:UNSP DISP FX OF SECOND CERVICAL VERTEBRA, INIT FOR CLOS Attending: MARTY MELTON Current LOS: 6 Anticipated DC Date: Planned Disposition: Home Primary Insurance: [facility] MEDICARE SOLUTIONS Discharge Planning Comments: CM met with patient and to discuss discharge planning. She lives with her . She is independent with all ADL's. States she has a cane and walker, but does not use them. She does not have any community resources assisting in the home. I discussed the availability of inpatient rehab, SNF and home health. states the plan is to return home with him. Declines need for home health. States "she is very independent." CM will continue to follow and assist with discharge planning/needs. Joint Maker Machine: Neetu Edward DCPIA - Discharge Planning Initial Assessment Updated by [email or web address]: Neetu Edward on 11/04/18 9:53 am * Is the patient Alert and Oriented? Yes * How many steps to enter\\exit or inside your home? 4/0 * PCP Dr. Melton * Pharmacy [facility] [address] [facility] [address] [facility] for immediate meds Mail order for ferry terminal agent meds * Preadmission Environment Home with Family * ADLs Independent * Equipment Cane Walker * List name and contact numbers for known caregivers / representatives who currently or will assist patient after discharge: Rico Howard - [facility] - [phone] * Verbal permission to speak to the caregivers and representatives has been obtained from the patient. Yes * Community resources currently utilized None * Additional services required to return to the preadmission environment? No * Can the patient safely return to the preadmission environment? Yes * Has this patient been hospitalized within the prior 30 days at any hospital? No Last DP export: 11/05/18 11:30 a Patient Name: ANITA MOON Page [id number] at 0703 All edits/amendments must be made on the electronic document DICTATION DATE: 11/11/18702 VEGETABLE CANNER: CARLOZ 11/11/18702 RPT#: [id number] DC DATE:11/05/18 STATUS: DIS IN [facility] [address] [place] [address] END OF REPORT
== END 2018-11-05 15:44 | disposition home health service (06) | DRG 551 ==
LOC: D.ER 19:14 → D.MS 23:08 → D.ICU 23:08 → D.SDCHOLD 23:08 → D.ICU 10-30 21:28 → D.MS 10-31 16:34 → D.SDCHOLD 11-03 14:43 → D.MS 11-03 17:35 → D.SDCHOLD 11-04 13:11 → D.MS 11-04 13:13
PROVIDERS: Family Medicine; Neurological Surgery; ADMIT Family Medicine
DX: S12.101A Unspecified nondisplaced fracture of second cervical vertebra, initial encounter for closed fracture (principal); G93.41 Metabolic encephalopathy; W01.0XXA Fall on same level from slipping, tripping and stumbling without subsequent striking against object, initial encounter; S00.83XA Contusion of other part of head, initial encounter; M81.0 Age-related osteoporosis without current pathological fracture; K21.9 Gastro-esophageal reflux disease without esophagitis; M19.90 Unspecified osteoarthritis, unspecified site; E78.5 Hyperlipidemia, unspecified; I10 Essential (primary) hypertension; I25.10 Atherosclerotic heart disease of native coronary artery without angina pectoris; F41.9 Anxiety disorder, unspecified; S80.02XA Contusion of left knee, initial encounter

== ENCOUNTER → 2019-01-05 07:57 | Outpatient (CLI) | payer MEDICARE ==
[2018-10-30 12:57] VITALS: BMI 26.7
[~2019-01-05 07:57] MED LIST changes: +ALLEGRA D PO; +FLUTICASONE PRO16 GM NASAL; +OMEGA-3100 MG PO; +VITAMIN B-121000 MCG
[2019-01-05 08:29] LABS: BASOPHILS 0.5 % (0-2); EOSINOPHILS 3.2 % (0-7); HEMATOCRIT 40.6 % (36.0-48.0); HEMOGLOBIN 13.6 g/dL (12-16); IMMATURE GRANULOCYTES 0.3 % (0-5); LYMPHOCYTES 34.5 % (15-50); MCH 31.2 pg (26.0-34.0); MCHC 33.5 g/dL (31.0-37.0); MCV 93.1 fL (80.0-100.0); MEAN PLATELET VOLUME 8.5 fL (7.4-10.4); MONOCYTES 8.7 % (2-11); NEUTROPHILS 52.8 % (40-80); RBC 4.36 10x6/uL (4.00-5.40); RDW 12.6 % (11.5-14.5); WBC 6.6 10x3/uL (4.8-10.8)
[2019-01-05 08:39] LABS: PLATELET COUNT 226 10x3/uL (130-400)
[2019-01-05 08:52] LABS: ALBUMIN 3.9 g/dL (3.4-5.0); ANION GAP 10.9 mmol/L (8-16); BILIRUBIN - TOTAL 0.59 mg/dL (0.2-1.3); CALCIUM 9.5 mg/dL (8.5-10.1); CARBON DIOXIDE 29.6 mmol/L (21.0-32.0); CHOL - HDL RATIO 2.3 ratio (2.3-4.1); CREATININE - SERUM 0.8 mg/dL (0.6-1.3); LDL-HDL RATIO 0.9 ratio (1.5-3.5); POTASSIUM - SERUM 3.5 mmol/L (3.5-5.1); PROTEIN - SERUM 7.7 g/dL (6.4-8.2); THYROID STIMULATING HORMONE 2.08 uIU/mL (0.36-3.74)
== END | disposition home or self-care (01) ==
LOC: D.LAB 07:57
PROVIDERS: ATTEND Family Medicine
DX: I25.10 Atherosclerotic heart disease of native coronary artery without angina pectoris (principal); K21.9 Gastro-esophageal reflux disease without esophagitis; M19.90 Unspecified osteoarthritis, unspecified site; E23.0 Hypopituitarism

== ENCOUNTER → 2019-09-01 10:27 | Outpatient (CLI) | payer MEDICARE ==
[2018-10-30 12:57] VITALS: BMI 26.7
--- NOTE | 2019-09-08 14:03 | EC ---
PATIENT:MOON HOWARD DATE OF SERVICE: 09/01/19 SEX: F MEDICAL RECORD: [id number] DATE OF : 41 LOCATION:D[facility] AGE OF PATIENT: 74 ADMISSION DATE: 09/01/19 REFERRING PHYSICIAN: INTERPRETING PHYSICIAN: ROXANNE HASSAN MD ECHOCARDIOGRAM REPORT ECHO CHARGES 4 ECHO COMPLETE Date: 09/01/19 CLINICAL DIAGNOSIS: H/O CAD/HTN ECHOCARDIOGRAPHIC MEASUREMENTS (adult normal given) AC root (d.<3.7cm) 3.1 cm LV Septum d (<1.2 cm> 1.5 cm Valve Excursion 1.9 cm LV Septum (systole) 2.1 cm Left Atria (s.<4.0cm> 4.2 cm LVPW d(<1.2cm) 1.5 cm RV (d.<2.3cm) 2.7 cm LVPW (sytole) 2.1 cm LV diastole(<5.6CM) 4.6 cm MV E-F(>70mm/sec) cm LV systole 1.8 cm LVOT Diameter 1.9 cm MV exc.(>10mm) cm Est.ejection fraction (50-75%) % DOPPLER: LVIT cm/sec A 156 cm/sec E 70.0 cm/sec LA cm/sec RVSP 36.0 mmHg LVOT 98.0 cm/sec AOP1/2T m/s Asc. Ao 132 cm/sec RVOT 61.0 cm/sec RA cm/sec PA 96.0 cm/sec AV Gradient Peak 6.9 mmHg AV Mean 3.4 mmHg AV Area 2.8 cm MV Gradient Peak 11.0 mmHg MV Mean 2.8 mmHg MV Area cm COMMENTS: OP - HC Hasher Operator: 1 QUINTON DERRELL Quality Associate: 3 Dr. Teixeira TAPE# PACS Pericardial Effusion N DATE OF SERVICE: Adequate 2D, color flow, spectral Doppler, and M-mode. LVH is present. LV internal dimension is normal. Wall motion is normal. EF is greater than or equal to 55%. Aortic valve is sclerotic. There is no evidence of stenosis by Doppler interrogation. Left atrium is mildly dilated at 4.2 cm. Mitral valve shows no prolapse. Mild MR. Right-sided chambers grossly normal. Mild TR. TRANSINT:[id number] Voice Confirmation ID: [id number] DOCUMENT ID: [id number] ECHOCARDIOGRAM REPORT [id number] MOON HOWARD,ROXANNE Kc MD at 1403 CC: [id number] DICTATION DATE: 09/07/19 1314 SENIOR MANAGER QUALITY ASSURANCE: 09/07/19 1650 DEP CLI 09/01/19 [place] [id number] [place] [id number]
== END | disposition home or self-care (01) ==
LOC: D.HCCECHO 10:27
PROVIDERS: ATTEND Internal Medicine Interventional Cardiology
DX: I25.10 Atherosclerotic heart disease of native coronary artery without angina pectoris (principal)

== ENCOUNTER → 2019-10-06 11:13 | Outpatient (CLI) | payer MEDICARE ==
[2018-10-30 12:57] VITALS: BMI 26.7
== END | disposition home or self-care (01) ==
LOC: D.RAD 11:13
PROVIDERS: ATTEND Family Medicine
DX: M54.5 Low back pain (principal)

== ENCOUNTER 2019-12-08 04:38 | Emergency (ER) | payer MEDICARE ==
[~2019-12-08] VITALS: Ht 152.4 cm; Wt 59.1 kg
[2019-12-08 04:42] VITALS: Ht 152.4 cm; Wt 59.1 kg
[2019-12-08] MEDS ORDERED: OMEPRAZOLE20 M1 PO (04:45)
[2019-12-08 05:32] LABS: BASOPHILS 0.2 % (0-2); EOSINOPHILS 0.8 % (0-7); HEMATOCRIT 50.2 % (36.0-48.0); HEMOGLOBIN 16.8 g/dL (12-16); IMMATURE GRANULOCYTES 0.5 % (0-5); LYMPHOCYTES 12.2 % (15-50); MCH 31.2 pg (26.0-34.0); MCHC 33.5 g/dL (31.0-37.0); MCV 93.1 fL (80.0-100.0); MEAN PLATELET VOLUME 8.3 fL (7.4-10.4); MONOCYTES 6.9 % (2-11); NEUTROPHILS 79.4 % (40-80); PLATELET COUNT 268 10x3/uL (130-400); RBC 5.39 10x6/uL (4.00-5.40); WBC 11.5 10x3/uL (4.8-10.8)
[2019-12-08 05:39] LABS: CALC OSMOLALITY 289 mosm/kg (275-300); CALCIUM 8.6 mg/dL (8.5-10.1); CARBON DIOXIDE 22.7 mmol/L (21.0-32.0); CHLORIDE - SERUM 107 mmol/L (98-107); CREATININE - SERUM 1.3 mg/dL (0.6-1.3); GLUCOSE 119 mg/dL (74-106); POTASSIUM - SERUM 3.6 mmol/L (3.5-5.1); SODIUM 143 mmol/L (136-145); UREA NITROGEN 24 mg/dL (7-18); eGFR NON AFRICAN AMERICAN 42 mL/min (90-120)
[2019-12-08 05:47] LABS: ALBUMIN 3.7 g/dL (3.4-5.0); ALKALINE PHOSPHATASE 58 U/L (30-120); ALT (SGPT) 53 U/L (10-68); AMYLASE - SERUM 101 U/L (25-115); LIPASE 425 U/L (73-393); PROTEIN - SERUM 7.7 g/dL (6.4-8.2)
[2019-12-08 05:52] LABS: TROPONIN-I < 0.017 ng/mL (0.000-0.060)
[2019-12-08 06:03] LABS: BILIRUBIN NEGATIVE (NEGATIVE); GLUCOSE NEGATIVE (NEGATIVE); KETONE NEGATIVE (NEGATIVE); NITRITE NEGATIVE (NEGATIVE); SPECIFIC GRAVITY 1.015 (1.005-1.020); UROBILINOGEN NORMAL (NORMAL)
[2019-12-08 06:04] LABS: BACTERIA FEW /hpf (NEGATIVE); EPITHELIAL CELLS 0-5 /hpf (0-5); HYALINE CAST 0-5 /lpf (NONE SEEN); RED CELLS - URINE 0-5 /hpf (0-5); WHITE CELLS - URINE 0-5 /hpf (NEGATIVE)
[2019-12-08] MEDS ORDERED: ZOFRAN ODT4 MG/UDTAB PO (07:42)
[2019-12-08 08:01] VITALS: BP 115/68
== END 2019-12-08 08:01 | disposition home or self-care (01) ==
LOC: D.ER 04:38
PROVIDERS: Family Medicine
DX: K52.9 Noninfective gastroenteritis and colitis, unspecified (principal); R10.9 Unspecified abdominal pain; R11.2 Nausea with vomiting, unspecified; I10 Essential (primary) hypertension; I25.2 Old myocardial infarction

== ENCOUNTER → 2020-03-14 08:09 | Outpatient (CLI) | payer MEDICARE ==
[2019-12-08 04:42] VITALS: BMI 25.4
[~2020-03-14 08:09] MED LIST changes: +OMEPRAZOLE20 M1 PO; +ZOFRAN ODT4 MG/UDTAB PO
[2020-03-14 08:42] LABS: BASOPHILS 0.3 % (0-2); EOSINOPHILS 1.6 % (0-7); HEMATOCRIT 41.5 % (36.0-48.0); HEMOGLOBIN 13.5 g/dL (12-16); IMMATURE GRANULOCYTES 0.1 % (0-5); LYMPHOCYTES 27.6 % (15-50); MCH 31.1 pg (26.0-34.0); MCHC 32.5 g/dL (31.0-37.0); MCV 95.6 fL (80.0-100.0); MEAN PLATELET VOLUME 8.3 fL (7.4-10.4); MONOCYTES 8.2 % (2-11); NEUTROPHILS 62.2 % (40-80); PLATELET COUNT 217 10x3/uL (130-400); RBC 4.34 10x6/uL (4.00-5.40); RDW 12.8 % (11.5-14.5); WBC 6.9 10x3/uL (4.8-10.8)
[2020-03-14 09:14] LABS: ALBUMIN 3.9 g/dL (3.4-5.0); ANION GAP 10.5 mmol/L (8-16); BILIRUBIN - TOTAL 0.54 mg/dL (0.2-1.3); CHOL - HDL RATIO 2.2 ratio (2.3-4.1); CREATININE - SERUM 0.8 mg/dL (0.6-1.3); LDL-HDL RATIO 0.9 ratio (1.5-3.5); POTASSIUM - SERUM 3.5 mmol/L (3.5-5.1); PROTEIN - SERUM 7.5 g/dL (6.4-8.2); THYROID STIMULATING HORMONE 2.01 uIU/mL (0.36-3.74)
== END | disposition home or self-care (01) ==
LOC: D.LAB 08:09
PROVIDERS: ATTEND Family Medicine
DX: Z00.00 Encounter for general adult medical examination without abnormal findings (principal); E78.5 Hyperlipidemia, unspecified; I10 Essential (primary) hypertension; R53.83 Other fatigue; E55.9 Vitamin D deficiency, unspecified; E53.8 Deficiency of other specified B group vitamins

== ENCOUNTER → 2021-01-03 07:49 | Outpatient (CLI) | payer MEDICARE ==
[2019-12-08 04:42] VITALS: BMI 25.4
[2021-01-03 08:58] LABS: BASOPHILS 0.6 % (0-2); EOSINOPHILS 3.5 % (0-7); HEMATOCRIT 39.8 % (36.0-48.0); HEMOGLOBIN 13.2 g/dL (12-16); IMMATURE GRANULOCYTES 0.2 % (0-5); LYMPHOCYTE ABS# 1.75 10x3/uL (1.18-3.74); LYMPHOCYTES 32.3 % (15-50); MCH 30.7 pg (26.0-34.0); MCHC 33.2 g/dL (31.0-37.0); MCV 92.6 fL (80.0-100.0); MEAN PLATELET VOLUME 8.5 fL (7.4-10.4); MONOCYTES 7.2 % (2-11); NEUTROPHIL ABS# 3.04 10x3/uL (1.56-6.13); NEUTROPHILS 56.2 % (40-80); PLATELET COUNT 233 10x3/uL (130-400); RDW 12.5 % (11.5-14.5); WBC 5.4 10x3/uL (4.8-10.8)
[2021-01-03 09:11] LABS: ALBUMIN 3.9 g/dL (3.4-5.0); ALKALINE PHOSPHATASE 51 U/L (30-120); ALT (SGPT) 25 U/L (10-68); BILIRUBIN - TOTAL 0.53 mg/dL (0.2-1.3); CALC OSMOLALITY 287 mosm/kg (275-300); CALCIUM 9.5 mg/dL (8.5-10.1); CARBON DIOXIDE 27.5 mmol/L (21.0-32.0); CHLORIDE - SERUM 108 mmol/L (98-107); CHOL - HDL RATIO 2.4 ratio (2.3-4.1); CHOLESTEROL, TOTAL 195 mg/dL (0-200); CREATININE - SERUM 0.8 mg/dL (0.6-1.3); GLUCOSE 88 mg/dL (74-106); HDL CHOLESTEROL 81 mg/dL (32-96); LDL CHOLESTEROL 82 mg/dL (0-100); POTASSIUM - SERUM 3.9 mmol/L (3.5-5.1); PROTEIN - SERUM 7.1 g/dL (6.4-8.2); SODIUM 143 mmol/L (136-145); THYROID STIMULATING HORMONE 2.15 uIU/mL (0.36-3.74); TRIGLYCERIDE 164 mg/dL (30-200); UREA NITROGEN 23 mg/dL (7-18); eGFR NON AFRICAN AMERICAN 74 mL/min (90-120)
[2021-01-03 09:13] LABS: C-REACTIVE PROTEIN < 0.2 mg/dL (0.0-0.9)
[2021-01-03 13:08] LABS: ERYTHROCYTE SEDIMENTATION RATE 32 mm/hr (0-30)
== END | disposition home or self-care (01) ==
LOC: D.LAB 07:49
PROVIDERS: ATTEND Family Medicine
DX: Z00.01 Encounter for general adult medical examination with abnormal findings (principal); I25.10 Atherosclerotic heart disease of native coronary artery without angina pectoris; K21.9 Gastro-esophageal reflux disease without esophagitis; M54.5 Low back pain